=== PATIENT | female | born 1990 | race African-American/Black ===

== ENCOUNTER → 2016-11-21 | Outpatient (CLI) | payer MEDICARE, MEDICAID ==
[~2016-11-21] MED LIST: ALBU8.5H IH; AZEL137S8 NASAL; BECL8.7A6 IH; CARI350 PO; FLUT16H NASAL; HYDR-305 PO; IPRA6S NASAL; MIRAUD PO; MIRT15 PO; OLAN15TA5 PO; PROM5SYR2 PO; SUMA100T PO; VENL-67 PO
== END | disposition home or self-care (01) ==
LOC: RESP 09:57
PROVIDERS: ATTEND Internal Medicine Critical Care Medicine
DX: J44.9 Chronic obstructive pulmonary disease, unspecified (principal)
CPT/HCPCS: 94010; 94726; 94727; 94729

== ENCOUNTER 2016-11-23 05:07 | Emergency (ER) | payer MEDICARE, MEDICAID ==
[~2016-11-23] VITALS: Ht 154.9 cm; Wt 97.0 kg
[2016-11-23] MEDS ORDERED: ACETAMINOPHEN 500 MG TABLET PO ONE (06:30)
[2016-11-23] MEDS ORDERED: PENICILLIN G BENZATHINE LA 1,200,000 UNITS/2 ML SYRINGE IM ONE (06:30)
[2016-11-23] MEDS ORDERED: DEXAMETHASONE SOD PHOS 4 MG/ML 5 ML VIAL IM ONE (06:30)
[2016-11-23] MEDS ORDERED: HYDROCODONE/ACETAMINOPHEN 5-325 MG TABLET PO ONE (06:30)
[2016-11-23 06:58] VITALS: BP 118/69
== END 2016-11-23 07:15 | disposition home or self-care (01) ==
LOC: EMS 05:08
DX: J03.90 Acute tonsillitis, unspecified (principal); F17.210 Nicotine dependence, cigarettes, uncomplicated; F20.9 Schizophrenia, unspecified; J44.9 Chronic obstructive pulmonary disease, unspecified; Z79.899 Other long term (current) drug therapy
CPT/HCPCS: 96372; 99284; 99406; J0561; J1100

== ENCOUNTER 2018-07-13 13:26 | Emergency (ER) | payer MEDICAID, MEDICARE ==
[~2018-07-13] VITALS: Ht 154.9 cm; Wt 85.0 kg
[~2018-07-13 13:26] MED LIST changes: -ALBU8.5H IH; +ALBU8.5H8 IH; -HYDR-305 PO; +HYDR-4455 PO
[2018-07-13] MEDS ORDERED: ONDANSETRON HCL 4 MG/2 ML VIAL IM ONE (15:15)
[2018-07-13] MEDS ORDERED: TraMADol HCL 50 MG TABLET PO ONE (15:15)
[2018-07-13] MEDS ORDERED: MAALOX/LIDOCAINE/NYSTATIN SUSP 5 ML ORAL.SYG PO ONE (15:45)
[2018-07-13 17:16] VITALS: BP 128/77
== END 2018-07-13 17:20 | disposition home or self-care (01) ==
LOC: EMS 13:27
DX: S80.11XA Contusion of right lower leg, initial encounter (principal); K12.0 Recurrent oral aphthae; B34.9 Viral infection, unspecified; G89.29 Other chronic pain; F17.210 Nicotine dependence, cigarettes, uncomplicated; F20.9 Schizophrenia, unspecified; Z88.6 Allergy status to analgesic agent; W05.1XXA Fall from non-moving nonmotorized scooter, initial encounter; Y93.89 Activity, other specified; Y92.89 Other specified places as the place of occurrence of the external cause; Y99.8 Other external cause status
CPT/HCPCS: 96372; 99283; J2405

== ENCOUNTER 2018-09-29 23:31 | Emergency (ER) | payer MEDICAID ==
[~2018-09-29] VITALS: Ht 157.5 cm; Wt 77.3 kg
[2018-09-29 23:49] LABS: GLUCOSE,POINT OF CARE 96 MG/DL (70-110)
[2018-09-30] MEDS ORDERED: PENICILLIN G BENZATHINE LA 1,200,000 UNITS/2 ML SYRINGE IM ONE (00:30)
[2018-09-30] MEDS ORDERED: LORazepam 2 MG TABLET PO ONE (00:30)
[2018-09-30] MEDS ORDERED: ACETAMINOPHEN 500 MG TABLET PO ONE (00:30)
[2018-09-30 00:55] VITALS: BP 156/87
== END 2018-09-30 00:57 | disposition home or self-care (01) ==
LOC: EMS 23:31
DX: J02.9 Acute pharyngitis, unspecified (principal); F20.9 Schizophrenia, unspecified; E11.9 Type 2 diabetes mellitus without complications; J44.9 Chronic obstructive pulmonary disease, unspecified; F17.210 Nicotine dependence, cigarettes, uncomplicated; Z88.6 Allergy status to analgesic agent
CPT/HCPCS: 82962; 96372; 99283; J0561

== ENCOUNTER 2020-01-29 18:58 | Inpatient (IN) | payer MEDICARE, MEDICAID ==
[~2020-01-29] VITALS: Ht 157.5 cm; Wt 59.1 kg
[2020-01-29] MEDS ORDERED: VANCOMYCIN HCL 1 GM/D5% WATER 200 ML IV ONE (20:15)
[2020-01-29] MEDS ORDERED: 0.9% SODIUM CHLORIDE 10 ML SYRINGE IVP PRN ×2 (20:15→21:15)
[2020-01-29] MEDS ORDERED: SODIUM CHLORIDE 0.9% 1,000 ML IV ONE (20:15)
[2020-01-29] MEDS ORDERED: ACETAMINOPHEN 500 MG TABLET PO ONE (20:15)
[2020-01-29] MEDS ORDERED: HALOPERIDOL LACTATE 5 MG/ML VIAL IM ONE (20:30)
[2020-01-29] MEDS ORDERED: DiphenhydrAMINE HCL 50 MG/ML VIAL IM ONE (20:30)
[2020-01-29] MEDS ORDERED: LORazepam 2 MG/ML VIAL IM ONE (20:30)
[2020-01-29] MEDS ORDERED: ACETAMINOPHEN 1000 MG/ISO-OSM 100 ML IV ONE (20:45)
[2020-01-29] MEDS ORDERED: ONDANSETRON HCL 4 MG/2 ML VIAL IVP PRN ×2 (21:15→22:45)
[2020-01-29] MEDS ORDERED: ACETAMINOPHEN 325 MG TABLET PO PRN ×2 (21:15→22:45)
[2020-01-29 22:15] LABS: BASOPHILS % (AUTO) 0.6 % (0.0-2.0); EOSINOPHILS % (AUTO) 0.1 % (1.0-6.0); HEMATOCRIT 33.3 % (36-46); HEMOGLOBIN 10.5 g/dL (12.0-16.0); LYMPHOCYTES # (AUTO) 2.1 K/uL (1.0-4.8); LYMPHOCYTES % (AUTO) 20.5 % (22.0-44.0); MEAN CORPUSCULAR HGB CONC 31.6 G/dL (31.0-37.0); MEAN CORPUSCULAR VOLUME 79 fL (80-100); MONOCYTES % (AUTO) 9.4 % (2.0-9.0); NEUTROPHILS # (AUTO) 7.2 K/uL (1.8-7.7); NEUTROPHILS % (AUTO) 69.4 % (40.0-70.0); PLATELET COUNT (AUTO) 593 K/uL (150-450); RED BLOOD CELL COUNT(AUTO) 4.21 MIL/uL (4.00-5.20); RED CELL DISTRIBUTION WIDTH 15.5 % (11.5-14.5)
[2020-01-29 22:41] LABS: ALANINE AMINOTRANSFERASE 15 U/L (12-78); ALBUMIN 3.7 g/dL (3.4-5.0); ALKALINE PHOSPHATASE 87 U/L (46-116); ANION GAP 11 mmol/L (8-16); ASPARTATE AMINOTRANSFERASE 12 U/L (15-37); BILIRUBIN,TOTAL 0.4 mg/dL (0.1-1.0); CALCIUM, TOTAL 9.2 mg/dL (8.8-10.5); CARBON DIOXIDE 25 mmol/L (22-29); CHLORIDE 105 mmol/L (98-107); CREATININE 0.83 mg/dL (0.60-1.30); GLOMERULAR FILTR. RATE CALC > 60 mL/min (>60); GLUCOSE,RANDOM 112 mg/dL (70-110); HCG,QUANTITATIVE 1 mIU/mL (0-6); SODIUM SERUM 141 mmol/L (136-145); TOTAL PROTEIN, SERUM 9.1 g/dL (6.4-8.2); UREA NITROGEN, BLOOD 6 mg/dL (7-18)
[2020-01-29] MEDS ORDERED: BISACODYL 10 MG RECTAL RECTAL SUPPOSITORY PR PRN (22:45)
[2020-01-29] MEDS ORDERED: ZOLPIDEM TARTRATE 5 MG TABLET PO PRN (22:45)
[2020-01-29] MEDS ORDERED: MAGNESIUM HYDROXIDE SUSPENSION 30 ML UDCUP PO PRN (22:45)
[2020-01-29] MEDS ORDERED: IPRATROPIUM BROMIDE 0.5 MG/2.5 ML NEB SOLUTION NEB PRN (22:45)
[2020-01-29] MEDS ORDERED: DEXTROSE 50%-WATER 25 GM/50 ML SYRINGE IVP PRN (22:45)
[2020-01-29] MEDS ORDERED: ALBUTEROL SULFATE 2.5 MG/0.5 ML NEB SOLUTION NEB PRN (22:45)
[2020-01-29 22:48] LABS: POTASSIUM 2.7 mmol/L (3.5-5.1)
[2020-01-29 22:50] LABS: GLUCOSE,POINT OF CARE 106 MG/DL (70-110)
[2020-01-29] MEDS ORDERED: POTASSIUM CHL 10 MEQ/WATER 50 ML IV PRN (23:00)
[2020-01-29] MEDS ORDERED: POTASSIUM CHLORIDE 20 MEQ ER TABLET PO PRN (23:15)
[2020-01-29] MEDS ORDERED: MAGNESIUM OXIDE 400 MG TABLET PO PRN (23:15)
[2020-01-29] MEDS ORDERED: MAGNESIUM SULFATE 4 GM/WATER 100 ML IV PRN (23:15)
[2020-01-29] MEDS ORDERED: MAGNESIUM SULFATE 2 GM/WATER 50 ML IV PRN (23:15)
[2020-01-30] VITALS (7 sets, daily range): BP systolic 112–158; BP diastolic 54–91
[2020-01-30] MEDS: POTASSIUM CHL 10 MEQ/WATER 50 ML IV PRN ×4 (01:36→06:55)
[2020-01-30] MEDS ORDERED: SODIUM CHLORIDE 0.9% 500 ML IV ONE (03:03)
[2020-01-30] MEDS ORDERED: SODIUM CHLORIDE 0.9% 100 ML ONE (03:54)
[2020-01-30 06:47] LABS: GLUCOMETER DEV NAME(LOC) 6S.1; GLUCOSE,POINT OF CARE 109 MG/DL (70-110)
[2020-01-30 07:16] LABS: BASOPHILS % (AUTO) 0.7 % (0.0-2.0); EOSINOPHILS % (AUTO) 0.8 % (1.0-6.0); HEMATOCRIT 30.2 % (36-46); HEMOGLOBIN 9.8 g/dL (12.0-16.0); LYMPHOCYTES % (AUTO) 27.3 % (22.0-44.0); MEAN CORPUSCULAR HEMOGLOBIN 25.7 pg (26.0-34.0); MEAN CORPUSCULAR HGB CONC 32.5 G/dL (31.0-37.0); MEAN CORPUSCULAR VOLUME 79 fL (80-100); MONOCYTES # (AUTO) 1.1 K/uL (0.1-1.0); MONOCYTES % (AUTO) 9.6 % (2.0-9.0); NEUTROPHILS # (AUTO) 6.8 K/uL (1.8-7.7); NEUTROPHILS % (AUTO) 61.6 % (40.0-70.0); PLATELET COUNT (AUTO) 523 K/uL (150-450); RED BLOOD CELL COUNT(AUTO) 3.82 MIL/uL (4.00-5.20); RED CELL DISTRIBUTION WIDTH 15.5 % (11.5-14.5)
[2020-01-30 07:46] LABS: ANION GAP 13 mmol/L (8-16); CARBON DIOXIDE 22 mmol/L (22-29); CHLORIDE 108 mmol/L (98-107); CREATININE 0.67 mg/dL (0.60-1.30); GLUCOSE,RANDOM 107 mg/dL (70-110); POTASSIUM 3.4 mmol/L (3.5-5.1); SODIUM SERUM 143 mmol/L (136-145); UREA NITROGEN, BLOOD 5 mg/dL (7-18)
[2020-01-30 07:47] LABS: ALANINE AMINOTRANSFERASE 16 U/L (12-78); ALBUMIN 3.3 g/dL (3.4-5.0); ALKALINE PHOSPHATASE 76 U/L (46-116); ASPARTATE AMINOTRANSFERASE 21 U/L (15-37); BILIRUBIN,TOTAL 0.3 mg/dL (0.1-1.0); CALCIUM, TOTAL 8.4 mg/dL (8.8-10.5); GLOMERULAR FILTR. RATE CALC > 60 mL/min (>60); TOTAL PROTEIN, SERUM 8.2 g/dL (6.4-8.2)
[2020-01-30] MEDS ORDERED: ERYTHROMYCIN 0.5% 3.5 GM TUBE OPHTHALMIC OINTMENT OD ONE (08:15)
[2020-01-30] MEDS ORDERED: MUPIROCIN CALCIUM 2% 22 GM OINTMENT TP ONE (08:15)
[2020-01-30] MEDS: HEPARIN SODIUM,PORCINE 5,000 UNITS/ML VIAL SQ SCH ×3 (09:12→09:22)
[2020-01-30] MEDS: DOCUSATE SODIUM 100 MG CAPSULE PO SCH (09:12)
[2020-01-30] MEDS: INSULIN LISPRO 100 UNITS/ML SQ PRN ×2 (12:06→17:19)
[2020-01-30] MEDS ORDERED: ACETAMINOPHEN 325 MG TABLET PO PRN (13:45)
[2020-01-30 17:23] LABS: GLUCOMETER DEV NAME(LOC) 6N.2; GLUCOSE,POINT OF CARE 106 MG/DL (70-110)
[2020-01-30 19:40] LABS: GLUCOMETER DEV NAME(LOC) 6N.2; GLUCOSE,POINT OF CARE 92 MG/DL (70-110)
[2020-01-30 23:31] LABS: GLUCOMETER DEV NAME(LOC) 6S.1; GLUCOSE,POINT OF CARE 107 MG/DL (70-110)
[2020-01-31] MEDS: DOCUSATE SODIUM 100 MG CAPSULE PO SCH ×2 (00:58→08:23)
[2020-01-31] MEDS: HEPARIN SODIUM,PORCINE 5,000 UNITS/ML VIAL SQ SCH ×3 (00:58→15:28)
[2020-01-31 03:57] VITALS: BP 122/78
[2020-01-31 07:10] LABS: BASOPHILS % (AUTO) 0.6 % (0.0-2.0); EOSINOPHILS % (AUTO) 5.6 % (1.0-6.0); HEMATOCRIT 31.1 % (36-46); HEMOGLOBIN 10.2 g/dL (12.0-16.0); LYMPHOCYTES # (AUTO) 2.5 K/uL (1.0-4.8); LYMPHOCYTES % (AUTO) 35.5 % (22.0-44.0); MEAN CORPUSCULAR HEMOGLOBIN 25.8 pg (26.0-34.0); MEAN CORPUSCULAR HGB CONC 32.8 G/dL (31.0-37.0); MEAN CORPUSCULAR VOLUME 79 fL (80-100); MONOCYTES # (AUTO) 0.7 K/uL (0.1-1.0); MONOCYTES % (AUTO) 9.4 % (2.0-9.0); NEUTROPHILS # (AUTO) 3.4 K/uL (1.8-7.7); NEUTROPHILS % (AUTO) 48.9 % (40.0-70.0); PLATELET COUNT (AUTO) 529 K/uL (150-450); RED BLOOD CELL COUNT(AUTO) 3.95 MIL/uL (4.00-5.20); RED CELL DISTRIBUTION WIDTH 15.2 % (11.5-14.5)
[2020-01-31 07:19] LABS: ALANINE AMINOTRANSFERASE 12 U/L (12-78); ALBUMIN 3.1 g/dL (3.4-5.0); ALKALINE PHOSPHATASE 65 U/L (46-116); ANION GAP 11 mmol/L (8-16); ASPARTATE AMINOTRANSFERASE 12 U/L (15-37); BILIRUBIN,TOTAL 0.2 mg/dL (0.1-1.0); CALCIUM, TOTAL 8.7 mg/dL (8.8-10.5); CARBON DIOXIDE 25 mmol/L (22-29); CHLORIDE 105 mmol/L (98-107); CREATININE 0.52 mg/dL (0.60-1.30); GLOMERULAR FILTR. RATE CALC > 60 mL/min (>60); GLUCOSE,RANDOM 101 mg/dL (70-110); POTASSIUM 3.8 mmol/L (3.5-5.1); SODIUM SERUM 141 mmol/L (136-145); TOTAL PROTEIN, SERUM 8.1 g/dL (6.4-8.2); UREA NITROGEN, BLOOD 7 mg/dL (7-18)
[2020-01-31 07:54] VITALS: BP 127/62
[2020-01-31] MEDS: INSULIN LISPRO 100 UNITS/ML SQ PRN (11:26)
[2020-01-31 11:28] VITALS: BP 108/67
[2020-01-31 11:47] LABS: GLUCOMETER DEV NAME(LOC) 6N.2; GLUCOSE,POINT OF CARE 106 MG/DL (70-110)
[2020-01-31 11:48] LABS: GLUCOMETER DEV NAME(LOC) 6N.2; GLUCOSE,POINT OF CARE 117 MG/DL (70-110)
[2020-01-31 16:23] VITALS: BP 106/66
[2020-01-31 17:59] LABS: GLUCOMETER DEV NAME(LOC) 6S.1; GLUCOSE,POINT OF CARE 103 MG/DL (70-110)
== END 2020-01-31 17:35 | DRG 605 ==
LOC: EMS 18:58 → 5S 22:35 → 6N 01-30 02:36 → 6S 01-30 13:57
PROVIDERS: ADMIT Hospitalist; ATTEND Hospitalist
DX: S80.812A Abrasion, left lower leg, initial encounter (principal); L03.116 Cellulitis of left lower limb; L03.115 Cellulitis of right lower limb; F99 Mental disorder, not otherwise specified; E87.6 Hypokalemia; E11.9 Type 2 diabetes mellitus without complications; J44.9 Chronic obstructive pulmonary disease, unspecified; F20.9 Schizophrenia, unspecified; F17.210 Nicotine dependence, cigarettes, uncomplicated; Z88.6 Allergy status to analgesic agent; S80.811A Abrasion, right lower leg, initial encounter; X58.XXXA Exposure to other specified factors, initial encounter; M54.5 Low back pain; F15.159 Other stimulant abuse with stimulant-induced psychotic disorder, unspecified; Z20.828 Contact with and (suspected) exposure to other viral communicable diseases
CPT/HCPCS: 83605; 83735; 84132; 84145; 87040; 93005; 99291; G0378; G0480; J1200; J1630; J1644; J2060; J3370; J3480; J7030; J7040; J7050

== ENCOUNTER 2020-01-31 17:45 | Inpatient (IN) | payer MEDICARE, MEDICAID ==
[~2020-01-31] VITALS: Ht 157.5 cm; Wt 62.8 kg
[2020-01-31 20:23] VITALS: BP 111/67
[2020-01-31] MEDS ORDERED: ZOLPIDEM TARTRATE 10 MG TABLET PO PRN (21:00)
[2020-01-31] MEDS ORDERED: DEXTROSE 50%-WATER 25 GM/50 ML SYRINGE IVP PRN (21:00)
[2020-01-31] MEDS ORDERED: INSULIN LISPRO 100 UNITS/ML SQ PRN (21:00)
[2020-01-31] MEDS ORDERED: PNEUMOCOCCAL VACCINE POLYVALENT 0.5 ML VIAL [PPSV23] IM ONE (21:00)
[2020-01-31 21:39] LABS: GLUCOMETER DEV NAME(LOC) 3E.I 2; GLUCOSE,POINT OF CARE 105 MG/DL (70-110)
[2020-01-31] MEDS: LORazepam 2 MG TABLET PO PRN (23:58)
[2020-02-01] VITALS (9 sets, daily range): BP systolic 103–129; BP diastolic 69–82
[2020-02-01 06:08] LABS: GLUCOMETER DEV NAME(LOC) 3E.I 2; GLUCOSE,POINT OF CARE 95 MG/DL (70-110)
[2020-02-01] MEDS ORDERED: DOCUSATE SODIUM 100 MG CAPSULE PO PRN (07:15)
[2020-02-01] MEDS ORDERED: ONDANSETRON HCL 4 MG TABLET PO PRN (07:15)
[2020-02-01] MEDS ORDERED: OMEPRAZOLE 20 MG CAPSULE PO PRN (07:15)
[2020-02-01] MEDS ORDERED: MAG HYDROX/AL HYDROX/SIMETH ES 30 ML SUSPENSION UDCUP PO PRN (07:15)
[2020-02-01] MEDS ORDERED: BENZOCAINE/MENTHOL LOZENGE MM PRN (07:15)
[2020-02-01] MEDS ORDERED: CloNIDine HCL 0.1 MG TABLET PO PRN ×2 (07:15→14:00)
[2020-02-01] MEDS ORDERED: LOPERAMIDE HCL 2 MG CAPSULE PO PRN (07:15)
[2020-02-01] MEDS ORDERED: BACITRACIN 28.4 GM OINTMENT TP PRN (07:15)
[2020-02-01] MEDS ORDERED: PETROLATUM,WHITE 28 GM JELLY TP PRN (07:15)
[2020-02-01] MEDS ORDERED: ACETAMINOPHEN 325 MG TABLET PO PRN (07:15)
[2020-02-01] MEDS ORDERED: ALBUTEROL SULFATE HFA 90 MCG/PUFF 8 GM INHALER IH PRN (07:15)
[2020-02-01] MEDS ORDERED: MAGNESIUM HYDROXIDE SUSPENSION 30 ML UDCUP PO PRN (07:15)
[2020-02-01] MEDS: MUPIROCIN CALCIUM 2% 15 GM CREAM TP SCH ×2 (08:33→16:18)
[2020-02-01] MEDS: SULFAMETHOX/TRIMETH DS 800-160 MG/TABLET PO SCH ×2 (08:33→16:18)
[2020-02-01] MEDS: NICOTINE 21 MG/24 HOUR PATCH TD SCH (08:34)
[2020-02-01] MEDS: HALOPERIDOL 5 MG TABLET PO PRN (13:53)
[2020-02-01] MEDS: LORazepam 2 MG TABLET PO PRN (13:53)
[2020-02-01] MEDS ORDERED: HydrOXYzine PAMOATE 50 MG CAPSULE PO PRN (14:00)
[2020-02-01] MEDS: IBUPROFEN 600 MG TABLET PO PRN (14:06)
[2020-02-01] MEDS: CloNIDine HCL 0.1 MG TABLET PO SCH ×2 (16:18→22:07)
[2020-02-01] MEDS: RisperiDONE 2 MG TABLET PO SCH (17:23)
[2020-02-01 18:01] LABS: GLUCOMETER DEV NAME(LOC) 3E.I 2; GLUCOSE,POINT OF CARE 87 MG/DL (70-110)
[2020-02-01 21:39] LABS: GLUCOMETER DEV NAME(LOC) 3E.I 2; GLUCOSE,POINT OF CARE 103 MG/DL (70-110)
[2020-02-02 01:00] VITALS: BP 112/76
[2020-02-02 01:11] VITALS: BP 112/76
[2020-02-02 05:43] VITALS: BP 103/64
[2020-02-02] MEDS: CloNIDine HCL 0.1 MG TABLET PO SCH ×4 (05:46→22:00)
[2020-02-02 05:56] LABS: GLUCOMETER DEV NAME(LOC) 3E.I 2; GLUCOSE,POINT OF CARE 97 MG/DL (70-110)
[2020-02-02] MEDS: SULFAMETHOX/TRIMETH DS 800-160 MG/TABLET PO SCH ×2 (09:52→16:43)
[2020-02-02] MEDS: RisperiDONE 2 MG TABLET PO SCH ×2 (09:52→16:43)
[2020-02-02] MEDS: NICOTINE 21 MG/24 HOUR PATCH TD SCH (09:53)
[2020-02-02] MEDS: MUPIROCIN CALCIUM 2% 15 GM CREAM TP SCH ×2 (09:53→16:43)
[2020-02-02] MEDS: LORazepam 2 MG TABLET PO PRN (10:51)
[2020-02-02] MEDS: HALOPERIDOL 5 MG TABLET PO PRN (10:51)
[2020-02-02 10:54] LABS: GLUCOMETER DEV NAME(LOC) 3EX.; GLUCOSE,POINT OF CARE 113 MG/DL (70-110)
[2020-02-02 13:30] VITALS: BP 111/66
[2020-02-02 14:11] LABS: GLUCOMETER DEV NAME(LOC) 3EX.; GLUCOSE,POINT OF CARE 87 MG/DL (70-110)
[2020-02-02 16:00] VITALS: BP 109/64
[2020-02-02 16:38] LABS: GLUCOMETER DEV NAME(LOC) 3EX.; GLUCOSE,POINT OF CARE 98 MG/DL (70-110)
[2020-02-02 17:00] VITALS: BP 112/72
[2020-02-02 21:22] LABS: GLUCOMETER DEV NAME(LOC) 3EX.; GLUCOSE,POINT OF CARE 102 MG/DL (70-110)
[2020-02-03 05:41] LABS: GLUCOMETER DEV NAME(LOC) 3E.I 2; GLUCOSE,POINT OF CARE 88 MG/DL (70-110)
[2020-02-03] MEDS: CloNIDine HCL 0.1 MG TABLET PO SCH ×4 (06:00→22:00)
[2020-02-03 08:00] VITALS: BP 104/59
[2020-02-03] MEDS: SULFAMETHOX/TRIMETH DS 800-160 MG/TABLET PO SCH ×2 (08:18→16:07)
[2020-02-03] MEDS: NICOTINE 21 MG/24 HOUR PATCH TD SCH (08:18)
[2020-02-03] MEDS: RisperiDONE 2 MG TABLET PO SCH ×2 (08:18→16:08)
[2020-02-03] MEDS: MUPIROCIN CALCIUM 2% 15 GM CREAM TP SCH ×2 (08:26→16:07)
[2020-02-03 11:52] LABS: GLUCOMETER DEV NAME(LOC) 3EX.; GLUCOSE,POINT OF CARE 86 MG/DL (70-110)
[2020-02-03 12:06] LABS: GLUCOMETER DEV NAME(LOC) 3E.I 2; GLUCOSE,POINT OF CARE 113 MG/DL (70-110)
[2020-02-03] MEDS: IBUPROFEN 600 MG TABLET PO PRN (12:31)
[2020-02-03 16:00] VITALS: BP 108/51
[2020-02-03 17:23] LABS: GLUCOMETER DEV NAME(LOC) 3EX.; GLUCOSE,POINT OF CARE 90 MG/DL (70-110)
[2020-02-03 21:18] LABS: GLUCOMETER DEV NAME(LOC) 3EX.; GLUCOSE,POINT OF CARE 107 MG/DL (70-110)
[2020-02-04 05:24] LABS: GLUCOMETER DEV NAME(LOC) 3E.I 2; GLUCOSE,POINT OF CARE 102 MG/DL (70-110)
[2020-02-04 06:15] VITALS: BP 114/78
[2020-02-04] MEDS: CloNIDine HCL 0.1 MG TABLET PO SCH ×2 (06:15→12:00)
[2020-02-04 08:00] VITALS: BP 104/65
[2020-02-04] MEDS: SULFAMETHOX/TRIMETH DS 800-160 MG/TABLET PO SCH (08:07)
[2020-02-04] MEDS: NICOTINE 21 MG/24 HOUR PATCH TD SCH (08:07)
[2020-02-04] MEDS: RisperiDONE 2 MG TABLET PO SCH (08:07)
[2020-02-04] MEDS: MUPIROCIN CALCIUM 2% 15 GM CREAM TP SCH (08:07)
[2020-02-04 10:22] LABS: GLUCOMETER DEV NAME(LOC) 3EX.; GLUCOSE,POINT OF CARE 109 MG/DL (70-110)
[2020-02-04 11:42] LABS: GLUCOMETER DEV NAME(LOC) 3EX.; GLUCOSE,POINT OF CARE 126 MG/DL (70-110)
[2020-02-04] MEDS ORDERED: RISP2TAB23 PO (14:05)
[2020-02-04] MEDS ORDERED: SULF1TAB42 PO (14:05)
== END 2020-02-04 16:15 | disposition home or self-care (01) | DRG 885 ==
LOC: 3EX 17:45
PROVIDERS: ADMIT Psychiatry & Neurology Psychiatry; ATTEND Psychiatry & Neurology Psychiatry
DX: F20.0 Paranoid schizophrenia (principal); E11.9 Type 2 diabetes mellitus without complications; J44.9 Chronic obstructive pulmonary disease, unspecified; Z20.828 Contact with and (suspected) exposure to other viral communicable diseases; F41.9 Anxiety disorder, unspecified; K59.00 Constipation, unspecified; G47.00 Insomnia, unspecified; Z79.899 Other long term (current) drug therapy
CPT/HCPCS: 87081; G0378

== ENCOUNTER 2023-03-02 10:17 | Emergency (ER) | payer MEDICAID, MEDICARE ==
[~2023-03-02] VITALS: Ht 154.9 cm; Wt 102.0 kg
[~2023-03-02 10:17] MED LIST changes: -ALBU8.5H8 IH; -AZEL137S8 NASAL; -BECL8.7A6 IH; -CARI350 PO; -FLUT16H NASAL; -HYDR-4455 PO; -IPRA6S NASAL; -MIRAUD PO; -MIRT15 PO; -OLAN15TA5 PO; -PROM5SYR2 PO; +RISP2TAB45 PO; +SULF1TAB42 PO; -SUMA100T PO; -VENL-67 PO
[2023-03-02 10:29] VITALS: TEMP 98.3
[2023-03-02] MEDS ORDERED: DiphenhydrAMINE HCL 50 MG/ML VIAL IVP ONE (11:45)
[2023-03-02] MEDS ORDERED: ACETAMINOPHEN 500 MG TABLET PO ONE (11:45)
[2023-03-02] MEDS ORDERED: ONDANSETRON HCL 4 MG/2 ML VIAL IVP ONE (11:45)
[2023-03-02] MEDS ORDERED: METOCLOPRAMIDE HCL 5 MG/ML 2 ML VIAL IVP ONE (11:45)
[2023-03-02 12:15] LABS: BASOPHILS % (AUTO) 0.5 % (0.0-2.0); EOSINOPHILS % (AUTO) 2.2 % (1.0-6.0); HEMATOCRIT 34.8 % (36-46); LYMPHOCYTES # (AUTO) 5.3 K/uL (1.0-4.8); LYMPHOCYTES % (AUTO) 52.3 % (22.0-44.0); MEAN CORPUSCULAR HEMOGLOBIN 25.4 pg (26.0-34.0); MEAN CORPUSCULAR HGB CONC 31.6 G/dL (31.0-37.0); MEAN CORPUSCULAR VOLUME 80 fL (80-100); MONOCYTES # (AUTO) 0.6 K/uL (0.1-1.0); MONOCYTES % (AUTO) 5.7 % (2.0-9.0); NEUTROPHILS % (AUTO) 39.3 % (40.0-70.0); PLATELET COUNT (AUTO) 392 K/uL (150-450); RED BLOOD CELL COUNT(AUTO) 4.34 MIL/uL (4.00-5.20); RED CELL DISTRIBUTION WIDTH 15.3 % (11.5-14.5)
[2023-03-02 12:23] LABS: ANION GAP 11 mmol/L (8-16); CALCIUM, TOTAL 9.5 mg/dL (8.8-10.5); CARBON DIOXIDE 29 mmol/L (22-29); CHLORIDE 103 mmol/L (98-107); CREATININE 0.69 mg/dL (0.60-1.30); GLOMERULAR FILTR. RATE CALC > 60 mL/min (>60); GLUCOSE,RANDOM 101 mg/dL (70-110); POTASSIUM 3.5 mmol/L (3.5-5.1); SODIUM SERUM 143 mmol/L (136-145)
[2023-03-02] MEDS ORDERED: KETOROLAC TROMETHAMINE 30 MG/ML VIAL IVP ONE (13:00)
[2023-03-02 13:14] VITALS: BP 118/80; PULSE 80; RESP 14
== END 2023-03-02 13:29 | disposition home or self-care (01) ==
LOC: EMS 10:34
DX: G43.909 Migraine, unspecified, not intractable, without status migrainosus (principal); E11.9 Type 2 diabetes mellitus without complications; F20.9 Schizophrenia, unspecified; J44.9 Chronic obstructive pulmonary disease, unspecified; G89.29 Other chronic pain; F17.210 Nicotine dependence, cigarettes, uncomplicated; Z88.8 Allergy status to other drugs, medicaments and biological substances
CPT/HCPCS: 99285; 96374; 96375; 70450; 80048; 84703; 85025; 36415; J1200; J1885; J2765; J2405

== ENCOUNTER 2023-03-05 14:39 | Emergency (ER) | payer MEDICAID ==
[~2023-03-05] VITALS: Ht 157.5 cm; Wt 118.2 kg
[2023-03-05 14:51] VITALS: TEMP 98.6
[2023-03-05 15:07] VITALS: BP 117/79; PULSE 89; RESP 18
[2023-03-05] MEDS ORDERED: ACETAMINOPHEN 500 MG TABLET PO ONE (15:15)
[2023-03-05] MEDS ORDERED: KETOROLAC TROMETHAMINE 30 MG/ML VIAL IM ONE (15:15)
[2023-03-05] MEDS ORDERED: DiphenhydrAMINE HCL 25 MG CAPSULE PO ONE (15:15)
== END 2023-03-05 16:03 | disposition home or self-care (01) ==
LOC: EMS 14:39
DX: R51.9 Headache, unspecified (principal); G89.29 Other chronic pain; E11.9 Type 2 diabetes mellitus without complications; F20.9 Schizophrenia, unspecified; J44.9 Chronic obstructive pulmonary disease, unspecified; F17.210 Nicotine dependence, cigarettes, uncomplicated
CPT/HCPCS: 99283; 96372; J1885

== ENCOUNTER 2023-03-16 17:24 | Emergency (ER) | payer MEDICAID ==
[~2023-03-16] VITALS: Ht 154.9 cm; Wt 100.0 kg
[~2023-03-16 17:24] MED LIST changes: -SULF1TAB42 PO
[2023-03-16 17:29] VITALS: TEMP 98.4
[2023-03-16] MEDS ORDERED: SODIUM CHLORIDE 0.9% 1,000 ML IV ONE (19:15)
[2023-03-16] MEDS ORDERED: ACETAMINOPHEN 500 MG TABLET PO ONE (19:15)
[2023-03-16] MEDS ORDERED: METOCLOPRAMIDE HCL 5 MG/ML 2 ML VIAL IVP ONE (19:15)
[2023-03-16] MEDS ORDERED: DiphenhydrAMINE HCL 50 MG/ML VIAL IVP ONE (19:15)
[2023-03-16] MEDS ORDERED: KETOROLAC TROMETHAMINE 30 MG/ML VIAL IVP ONE (19:15)
[2023-03-16 22:20] VITALS: BP 120/85; PULSE 93; RESP 18
== END 2023-03-16 22:46 | disposition home or self-care (01) ==
LOC: EMS 17:25
DX: R51.9 Headache, unspecified (principal); J44.9 Chronic obstructive pulmonary disease, unspecified; E11.9 Type 2 diabetes mellitus without complications; F20.9 Schizophrenia, unspecified; G89.29 Other chronic pain; M54.9 Dorsalgia, unspecified; F17.210 Nicotine dependence, cigarettes, uncomplicated; Z98.890 Other specified postprocedural states
CPT/HCPCS: 99284; 96374; 96375; 96361; J1200; J1885; J2765; J7030

== ENCOUNTER 2023-03-19 22:38 | Inpatient (IN) | payer MEDICARE, MEDICAID ==
[~2023-03-19] VITALS: Ht 154.9 cm; Wt 99.8 kg
[2023-03-19] MEDS ORDERED: DiphenhydrAMINE HCL 50 MG/ML VIAL IVP ONE (23:30)
[2023-03-19] MEDS ORDERED: KETOROLAC TROMETHAMINE 30 MG/ML VIAL IVP ONE (23:30)
[2023-03-19 23:59] LABS: BASOPHILS % (AUTO) 0.5 % (0.0-2.0); HEMATOCRIT 35.3 % (36-46); HEMOGLOBIN 11.1 g/dL (12.0-16.0); LYMPHOCYTES # (AUTO) 5.3 K/uL (1.0-4.8); LYMPHOCYTES % (AUTO) 49.1 % (22.0-44.0); MEAN CORPUSCULAR HEMOGLOBIN 25.2 pg (26.0-34.0); MEAN CORPUSCULAR HGB CONC 31.5 G/dL (31.0-37.0); MEAN CORPUSCULAR VOLUME 80 fL (80-100); MONOCYTES # (AUTO) 0.7 K/uL (0.1-1.0); MONOCYTES % (AUTO) 6.5 % (2.0-9.0); NEUTROPHILS # (AUTO) 4.6 K/uL (1.8-7.7); NEUTROPHILS % (AUTO) 42.9 % (40.0-70.0); PLATELET COUNT (AUTO) 381 K/uL (150-450); RED BLOOD CELL COUNT(AUTO) 4.39 MIL/uL (4.00-5.20)
[2023-03-20 00:08] LABS: ANION GAP 10 mmol/L (8-16); CALCIUM, TOTAL 9.3 mg/dL (8.8-10.5); CARBON DIOXIDE 24 mmol/L (22-29); CHLORIDE 103 mmol/L (98-107); CREATININE 0.72 mg/dL (0.60-1.30); GLOMERULAR FILTR. RATE CALC > 60 mL/min (>60); GLUCOSE,RANDOM 103 mg/dL (70-110); POTASSIUM 3.3 mmol/L (3.5-5.1); SODIUM SERUM 137 mmol/L (136-145)
[2023-03-20 00:14] LABS: ALANINE AMINOTRANSFERASE 20 U/L (12-78); ALBUMIN 3.6 g/dL (3.4-5.0); ALKALINE PHOSPHATASE 88 U/L (46-116); ASPARTATE AMINOTRANSFERASE 16 U/L (15-37); BILIRUBIN,TOTAL 0.2 mg/dL (0.1-1.0); TOTAL PROTEIN, SERUM 7.7 g/dL (6.4-8.2)
[2023-03-20] MEDS ORDERED: RisperiDONE 1 MG TABLET PO ONE (00:30)
[2023-03-20] MEDS ORDERED: LORazepam 1 MG TABLET PO ONE (00:30)
[2023-03-20] MEDS ORDERED: POTASSIUM CHLORIDE 20 MEQ ER TABLET PO ONE (00:45)
[2023-03-20 01:01] LABS: COVID AG,FIA SOURCE NASAL SWAB
[2023-03-20] MEDS ORDERED: HALOPERIDOL 5 MG TABLET PO PRN (01:45)
[2023-03-20] MEDS: LORazepam 2 MG TABLET PO PRN (04:14)
[2023-03-20] MEDS: ZOLPIDEM TARTRATE 10 MG TABLET PO PRN (04:14)
[2023-03-20 08:31] LABS: GLUCOMETER DEV NAME(LOC) ER.6
[2023-03-20 10:50] VITALS: BP 129/82; PULSE 83; RESP 17; TEMP 98; O2SAT 98
[2023-03-20 11:41] LABS: GLUCOMETER DEV NAME(LOC) BV2X.2
[2023-03-20] MEDS ORDERED: PNEUMOCOCCAL VACCINE POLYVALENT 0.5 ML VIAL [PPSV23] IM. ONE (12:30)
[2023-03-20] MEDS ORDERED: ONDANSETRON HCL 4 MG TABLET PO PRN (13:00)
[2023-03-20] MEDS ORDERED: LOPERAMIDE HCL 2 MG CAPSULE PO PRN (13:00)
[2023-03-20] MEDS ORDERED: DOCUSATE SODIUM 100 MG CAPSULE PO PRN (13:00)
[2023-03-20] MEDS ORDERED: CloNIDine HCL 0.1 MG TABLET PO PRN (13:00)
[2023-03-20] MEDS ORDERED: PETROLATUM,WHITE 28 GM JELLY TP PRN (13:00)
[2023-03-20] MEDS ORDERED: MAGNESIUM HYDROXIDE SUSPENSION 30 ML UDCUP PO PRN (13:00)
[2023-03-20] MEDS ORDERED: ALBUTEROL SULFATE HFA 90 MCG/PUFF 8 GM INHALER IH PRN (13:00)
[2023-03-20] MEDS ORDERED: MAG HYDROX/AL HYDROX/SIMETH ES 30 ML SUSPENSION UDCUP PO PRN (13:00)
[2023-03-20] MEDS ORDERED: POTASSIUM CHLORIDE 10 MEQ ER TABLET PO ONE (13:00)
[2023-03-20] MEDS: IBUPROFEN 400 MG TABLET PO PRN (15:52)
[2023-03-20 16:10] VITALS: BP 122/84; PULSE 81; RESP 18
[2023-03-20 16:52] VITALS: RESP 18
[2023-03-20] MEDS: RisperiDONE 2 MG TABLET PO SCH (20:28)
[2023-03-20] MEDS: FLUTICASONE PROPIONATE 50 MCG/SPRAY 16 GM NASAL SPRAY NASAL PRN (21:32)
[2023-03-21] VITALS (10 sets, daily range): BP systolic 117–128; BP diastolic 83–84; PULSE 97–106; RESP 16–19; TEMP 97.3–97.8; O2SAT 97–98
[2023-03-21] MEDS: IBUPROFEN 400 MG TABLET PO PRN ×2 (05:04→14:19)
[2023-03-21] MEDS: ACETAMINOPHEN 325 MG TABLET PO PRN (08:02)
[2023-03-21] MEDS: RisperiDONE 2 MG TABLET PO SCH ×2 (08:02→20:39)
[2023-03-21] MEDS: NICOTINE 14 MG/24 HOUR PATCH TD PRN (08:02)
[2023-03-21] MEDS: FLUTICASONE PROPIONATE 50 MCG/SPRAY 16 GM NASAL SPRAY NASAL PRN (08:02)
[2023-03-21 09:20] LABS: CHOL/HDL RATIO 2.9 (3.9-5.7); THYROID STIMULATING HORMONE 1.13 uIU/mL (0.36-3.74)
[2023-03-21] MEDS ORDERED: SUMAtriptan SUCCINATE 25 MG TABLET PO PRN (10:45)
[2023-03-21] MEDS: BENZTROPINE MESYLATE 1 MG TABLET PO SCH ×2 (14:16→17:15)
[2023-03-21] MEDS: LORazepam 2 MG TABLET PO PRN (14:16)
[2023-03-21] MEDS: SUMAtriptan SUCCINATE 25 MG TABLET PO SCH (17:16)
[2023-03-22 00:17] VITALS: BP 122/77; PULSE 90; RESP 17; TEMP 97.8
[2023-03-22] MEDS: SUMAtriptan SUCCINATE 25 MG TABLET PO SCH ×4 (00:22→17:43)
[2023-03-22 01:49] VITALS: RESP 17
[2023-03-22] MEDS: IBUPROFEN 400 MG TABLET PO PRN ×2 (01:51→22:51)
[2023-03-22 06:16] VITALS: BP 115/74; PULSE 88; RESP 17; TEMP 97.9
[2023-03-22] MEDS: BENZTROPINE MESYLATE 1 MG TABLET PO SCH ×2 (08:23→16:30)
[2023-03-22] MEDS: RisperiDONE 2 MG TABLET PO SCH ×2 (08:23→20:33)
[2023-03-22] MEDS: LORazepam 2 MG TABLET PO PRN (08:30)
[2023-03-22 08:33] VITALS: BP 139/90; PULSE 99; RESP 18; TEMP 97.3; O2SAT 98
[2023-03-22 20:12] VITALS: BP 120/80; PULSE 100; RESP 19; TEMP 97.7; O2SAT 98
[2023-03-22 22:48] VITALS: BP 128/90; PULSE 81; RESP 18
[2023-03-23] MEDS: SUMAtriptan SUCCINATE 25 MG TABLET PO SCH ×3 (00:02→12:40)
[2023-03-23] MEDS: FLUTICASONE PROPIONATE 50 MCG/SPRAY 16 GM NASAL SPRAY NASAL PRN (07:28)
[2023-03-23] MEDS: RisperiDONE 2 MG TABLET PO SCH ×2 (08:15→21:33)
[2023-03-23] MEDS: BENZTROPINE MESYLATE 1 MG TABLET PO SCH ×2 (08:15→16:38)
[2023-03-23] MEDS: MULTIVITAMINS WITH MINERALS, THERAPEUTIC TABLET PO SCH (08:15)
[2023-03-23 08:27] VITALS: BP 143/77; PULSE 113; RESP 17; TEMP 97.4; O2SAT 98
[2023-03-23 15:45] LABS: AMPHET/METH SCREEN,URINE NEGATIVE (NEGATIVE); BARBITURATE SCREEN, URINE NEGATIVE (NEGATIVE); BENZODIAZEPINES SCREEN,URINE NEGATIVE (NEGATIVE); CANNABINOID SCREEN,URINE NEGATIVE (NEGATIVE); COCAINE SCREEN,URINE NEGATIVE (NEGATIVE); METHADONE SCREEN, URINE NEGATIVE (NEGATIVE); OPIATE SCREEN,URINE NEGATIVE (NEGATIVE); PHENCYCLIDINE SCREEN,URINE NEGATIVE (NEGATIVE)
[2023-03-23 20:15] VITALS: BP 127/77; PULSE 64; RESP 18; TEMP 98.2; O2SAT 98
[2023-03-23 21:37] VITALS: RESP 16
[2023-03-23] MEDS: TraMADol HCL 50 MG TABLET PO PRN (21:37)
[2023-03-23] MEDS: ZOLPIDEM TARTRATE 10 MG TABLET PO PRN (21:37)
[2023-03-23 22:37] VITALS: RESP 17
[2023-03-24] MEDS: BENZTROPINE MESYLATE 1 MG TABLET PO SCH ×2 (08:43→16:29)
[2023-03-24] MEDS: RisperiDONE 2 MG TABLET PO SCH ×2 (08:43→20:33)
[2023-03-24] MEDS: MULTIVITAMINS WITH MINERALS, THERAPEUTIC TABLET PO SCH (08:43)
[2023-03-24 09:02] VITALS: BP 115/86; PULSE 82; RESP 19; TEMP 97.3; O2SAT 100
[2023-03-24 17:02] VITALS: BP 138/84; PULSE 102; RESP 18
[2023-03-24] MEDS: IBUPROFEN 400 MG TABLET PO PRN (17:04)
[2023-03-24 18:07] VITALS: RESP 18
[2023-03-24] MEDS: FLUTICASONE PROPIONATE 50 MCG/SPRAY 16 GM NASAL SPRAY NASAL PRN (19:41)
[2023-03-24 20:43] VITALS: BP 135/76; PULSE 80; RESP 19; TEMP 97.7; O2SAT 99
[2023-03-25] VITALS (7 sets, daily range): BP systolic 116–130; BP diastolic 77–85; PULSE 70–85; RESP 16–18; TEMP 96.5–97.8; O2SAT 98
[2023-03-25] MEDS: FLUTICASONE PROPIONATE 50 MCG/SPRAY 16 GM NASAL SPRAY NASAL PRN (01:46)
[2023-03-25] MEDS: TraMADol HCL 50 MG TABLET PO PRN ×2 (01:46→14:44)
[2023-03-25] MEDS: IBUPROFEN 400 MG TABLET PO PRN (07:00)
[2023-03-25] MEDS: RisperiDONE 2 MG TABLET PO SCH ×2 (08:10→20:18)
[2023-03-25] MEDS: BENZTROPINE MESYLATE 1 MG TABLET PO SCH ×2 (08:10→16:11)
[2023-03-25] MEDS: MULTIVITAMINS WITH MINERALS, THERAPEUTIC TABLET PO SCH (08:10)
[2023-03-25] MEDS: ACETAMINOPHEN 325 MG TABLET PO PRN (12:08)
[2023-03-26] MEDS: FLUTICASONE PROPIONATE 50 MCG/SPRAY 16 GM NASAL SPRAY NASAL PRN (04:03)
[2023-03-26] MEDS: BENZTROPINE MESYLATE 1 MG TABLET PO SCH ×2 (08:03→16:55)
[2023-03-26] MEDS: RisperiDONE 2 MG TABLET PO SCH ×2 (08:03→20:12)
[2023-03-26] MEDS: MULTIVITAMINS WITH MINERALS, THERAPEUTIC TABLET PO SCH (08:03)
[2023-03-26 08:28] VITALS: BP 115/79; PULSE 74; RESP 17; TEMP 97.8; O2SAT 100
[2023-03-26 12:37] VITALS: RESP 17
[2023-03-26] MEDS: IBUPROFEN 400 MG TABLET PO PRN (12:37)
[2023-03-26 13:37] VITALS: RESP 16
[2023-03-26 20:28] VITALS: BP 110/69; PULSE 74; RESP 17; TEMP 97.8; O2SAT 74
[2023-03-27] VITALS (7 sets, daily range): BP systolic 111–122; BP diastolic 61–86; PULSE 77–88; RESP 18–20; TEMP 97.5–98.2; O2SAT 96–98
[2023-03-27] MEDS: ZOLPIDEM TARTRATE 10 MG TABLET PO PRN (01:28)
[2023-03-27] MEDS: FLUTICASONE PROPIONATE 50 MCG/SPRAY 16 GM NASAL SPRAY NASAL PRN (01:28)
[2023-03-27] MEDS: BENZTROPINE MESYLATE 1 MG TABLET PO SCH ×2 (08:26→16:14)
[2023-03-27] MEDS: RisperiDONE 2 MG TABLET PO SCH ×2 (08:26→20:39)
[2023-03-27] MEDS: MULTIVITAMINS WITH MINERALS, THERAPEUTIC TABLET PO SCH (08:26)
[2023-03-27] MEDS: IBUPROFEN 400 MG TABLET PO PRN (10:40)
[2023-03-27] MEDS: SERTRALINE HCL 50 MG TABLET PO SCH (13:02)
[2023-03-27] MEDS: TraMADol HCL 50 MG TABLET PO PRN (16:15)
[2023-03-28] MEDS: FLUTICASONE PROPIONATE 50 MCG/SPRAY 16 GM NASAL SPRAY NASAL PRN (03:25)
[2023-03-28 08:26] VITALS: BP 113/71; PULSE 89; RESP 19; TEMP 98.3; O2SAT 98
[2023-03-28] MEDS: MULTIVITAMINS WITH MINERALS, THERAPEUTIC TABLET PO SCH (08:26)
[2023-03-28] MEDS: RisperiDONE 2 MG TABLET PO SCH ×2 (08:27→20:42)
[2023-03-28] MEDS: BENZTROPINE MESYLATE 1 MG TABLET PO SCH ×2 (08:27→16:43)
[2023-03-28] MEDS: SERTRALINE HCL 50 MG TABLET PO SCH (08:27)
[2023-03-28] MEDS: TraMADol HCL 50 MG TABLET PO PRN (09:13)
[2023-03-28] MEDS: ACETAMINOPHEN 325 MG TABLET PO PRN (16:47)
[2023-03-28 16:48] VITALS: RESP 18
[2023-03-28 17:47] VITALS: RESP 18
[2023-03-28 20:37] VITALS: BP 123/81; PULSE 99; RESP 18; TEMP 98.1; O2SAT 97
[2023-03-29] MEDS: FLUTICASONE PROPIONATE 50 MCG/SPRAY 16 GM NASAL SPRAY NASAL PRN (06:57)
[2023-03-29 08:24] VITALS: BP 118/67; PULSE 96; RESP 17; TEMP 98.2; O2SAT 98
[2023-03-29] MEDS: BENZTROPINE MESYLATE 1 MG TABLET PO SCH ×2 (08:33→17:02)
[2023-03-29] MEDS: MULTIVITAMINS WITH MINERALS, THERAPEUTIC TABLET PO SCH (08:33)
[2023-03-29] MEDS: SERTRALINE HCL 50 MG TABLET PO SCH (08:33)
[2023-03-29] MEDS: RisperiDONE 2 MG TABLET PO SCH ×2 (08:33→22:08)
[2023-03-29 09:07] VITALS: RESP 17
[2023-03-29] MEDS: TraMADol HCL 50 MG TABLET PO PRN (09:07)
[2023-03-29 10:07] VITALS: RESP 16
[2023-03-29 20:04] VITALS: BP 112/68; PULSE 88; RESP 16; TEMP 98.6
[2023-03-29] MEDS: ZOLPIDEM TARTRATE 10 MG TABLET PO PRN (22:50)
[2023-03-30] MEDS: MULTIVITAMINS WITH MINERALS, THERAPEUTIC TABLET PO SCH (08:03)
[2023-03-30] MEDS: SERTRALINE HCL 50 MG TABLET PO SCH (08:03)
[2023-03-30] MEDS: RisperiDONE 2 MG TABLET PO SCH ×2 (08:03→20:15)
[2023-03-30] MEDS: BENZTROPINE MESYLATE 1 MG TABLET PO SCH ×2 (08:03→16:23)
[2023-03-30 08:12] VITALS: BP 108/67; PULSE 80; RESP 17; TEMP 97.7; O2SAT 97
[2023-03-30 09:00] VITALS: RESP 17
[2023-03-30] MEDS: TraMADol HCL 50 MG TABLET PO PRN ×2 (09:00→21:02)
[2023-03-30 10:00] VITALS: RESP 16
[2023-03-30] MEDS: FLUTICASONE PROPIONATE 50 MCG/SPRAY 16 GM NASAL SPRAY NASAL PRN (15:19)
[2023-03-30 20:09] VITALS: BP 129/87; PULSE 78; RESP 18; TEMP 98.2; O2SAT 98
[2023-03-31] VITALS (8 sets, daily range): BP systolic 102–122; BP diastolic 65–66; PULSE 83–100; RESP 16–18; TEMP 97–97.6; O2SAT 98–99
[2023-03-31] MEDS: SERTRALINE HCL 50 MG TABLET PO SCH (08:14)
[2023-03-31] MEDS: BENZTROPINE MESYLATE 1 MG TABLET PO SCH ×2 (08:14→16:50)
[2023-03-31] MEDS: MULTIVITAMINS WITH MINERALS, THERAPEUTIC TABLET PO SCH (08:14)
[2023-03-31] MEDS: RisperiDONE 2 MG TABLET PO SCH ×2 (08:14→20:17)
[2023-03-31] MEDS: FLUTICASONE PROPIONATE 50 MCG/SPRAY 16 GM NASAL SPRAY NASAL PRN ×2 (08:17→16:52)
[2023-03-31] MEDS: TraMADol HCL 50 MG TABLET PO PRN ×2 (09:04→21:41)
[2023-03-31] MEDS: GuaiFENesin/D-METHORPHAN [SUGAR-FREE] 200-20MG/10 ML SYRUP UDCUP PO PRN (13:32)
[2023-03-31] MEDS: IBUPROFEN 400 MG TABLET PO PRN (16:52)
[2023-04-01] MEDS: FLUTICASONE PROPIONATE 50 MCG/SPRAY 16 GM NASAL SPRAY NASAL PRN (06:18)
[2023-04-01 08:03] VITALS: BP 102/63; PULSE 68; RESP 16; TEMP 98.2; O2SAT 97
[2023-04-01] MEDS: RisperiDONE 2 MG TABLET PO SCH ×2 (08:21→20:01)
[2023-04-01] MEDS: MULTIVITAMINS WITH MINERALS, THERAPEUTIC TABLET PO SCH (08:21)
[2023-04-01] MEDS: SERTRALINE HCL 50 MG TABLET PO SCH (08:21)
[2023-04-01] MEDS: BENZTROPINE MESYLATE 1 MG TABLET PO SCH ×2 (08:21→16:04)
[2023-04-01 10:21] VITALS: RESP 17
[2023-04-01] MEDS: TraMADol HCL 50 MG TABLET PO PRN (10:21)
[2023-04-01] MEDS: GuaiFENesin/D-METHORPHAN [SUGAR-FREE] 200-20MG/10 ML SYRUP UDCUP PO PRN ×2 (11:04→18:23)
[2023-04-01 11:21] VITALS: RESP 16
[2023-04-01 18:23] VITALS: RESP 17
[2023-04-01] MEDS: IBUPROFEN 400 MG TABLET PO PRN (18:23)
[2023-04-01 19:23] VITALS: RESP 16
[2023-04-01 20:03] VITALS: BP 111/77; PULSE 90; RESP 16; TEMP 97.8
[2023-04-02] MEDS: FLUTICASONE PROPIONATE 50 MCG/SPRAY 16 GM NASAL SPRAY NASAL PRN ×2 (02:33→13:13)
[2023-04-02] MEDS: MULTIVITAMINS WITH MINERALS, THERAPEUTIC TABLET PO SCH (08:36)
[2023-04-02 08:37] VITALS: BP 120/80; PULSE 71; RESP 18; TEMP 97.4; O2SAT 95
[2023-04-02] MEDS: BENZTROPINE MESYLATE 1 MG TABLET PO SCH ×2 (08:37→16:30)
[2023-04-02] MEDS: SERTRALINE HCL 50 MG TABLET PO SCH (08:37)
[2023-04-02] MEDS: TraMADol HCL 50 MG TABLET PO PRN (08:37)
[2023-04-02] MEDS: RisperiDONE 2 MG TABLET PO SCH ×2 (08:37→20:30)
[2023-04-02 09:37] VITALS: RESP 18
[2023-04-02 21:51] VITALS: BP 132/84; PULSE 68; RESP 18; TEMP 97.7; O2SAT 98
[2023-04-03 08:01] VITALS: BP 121/79; PULSE 82; RESP 18; TEMP 97.8; O2SAT 97
[2023-04-03] MEDS: TraMADol HCL 50 MG TABLET PO PRN (08:01)
[2023-04-03 08:08] VITALS: BP 121/79; PULSE 82; RESP 16; TEMP 97.7; O2SAT 97
[2023-04-03] MEDS: FLUTICASONE PROPIONATE 50 MCG/SPRAY 16 GM NASAL SPRAY NASAL PRN (08:37)
[2023-04-03] MEDS: MULTIVITAMINS WITH MINERALS, THERAPEUTIC TABLET PO SCH (08:37)
[2023-04-03] MEDS: BENZTROPINE MESYLATE 1 MG TABLET PO SCH ×2 (08:37→16:31)
[2023-04-03] MEDS: RisperiDONE 2 MG TABLET PO SCH ×2 (08:37→20:30)
[2023-04-03] MEDS: SERTRALINE HCL 50 MG TABLET PO SCH (08:37)
[2023-04-03 09:01] VITALS: RESP 18
[2023-04-03 20:17] VITALS: BP 135/82; PULSE 72; RESP 18; TEMP 98.2; O2SAT 97
[2023-04-04 08:15] VITALS: BP 132/82; PULSE 82; RESP 18; TEMP 98.4; O2SAT 97
[2023-04-04] MEDS: MULTIVITAMINS WITH MINERALS, THERAPEUTIC TABLET PO SCH (08:49)
[2023-04-04] MEDS: BENZTROPINE MESYLATE 1 MG TABLET PO SCH ×2 (08:49→16:33)
[2023-04-04] MEDS: SERTRALINE HCL 50 MG TABLET PO SCH (08:49)
[2023-04-04] MEDS: RisperiDONE 2 MG TABLET PO SCH ×2 (08:49→20:33)
[2023-04-04] MEDS: TraMADol HCL 50 MG TABLET PO PRN (10:02)
[2023-04-04] MEDS: IBUPROFEN 400 MG TABLET PO PRN (11:32)
[2023-04-04 20:15] VITALS: BP 118/64; PULSE 84; RESP 17; TEMP 97.2; O2SAT 98
[2023-04-05] MEDS: MULTIVITAMINS WITH MINERALS, THERAPEUTIC TABLET PO SCH (07:59)
[2023-04-05] MEDS: SERTRALINE HCL 50 MG TABLET PO SCH (07:59)
[2023-04-05] MEDS: BENZTROPINE MESYLATE 1 MG TABLET PO SCH ×2 (07:59→16:34)
[2023-04-05] MEDS: RisperiDONE 2 MG TABLET PO SCH ×2 (07:59→20:29)
[2023-04-05] MEDS: TraMADol HCL 50 MG TABLET PO PRN ×2 (08:00→20:11)
[2023-04-05 08:18] VITALS: BP 121/69; PULSE 88; RESP 17; TEMP 98.6; O2SAT 97
[2023-04-05] MEDS: IBUPROFEN 400 MG TABLET PO PRN (12:03)
[2023-04-05] MEDS: ACETAMINOPHEN 325 MG TABLET PO PRN (16:34)
[2023-04-05 16:35] VITALS: RESP 18
[2023-04-05 17:34] VITALS: RESP 18
[2023-04-05 20:11] VITALS: BP 115/77; PULSE 81; RESP 18; TEMP 98.1; O2SAT 98
[2023-04-05 21:08] VITALS: RESP 18
[2023-04-06] MEDS: RisperiDONE 2 MG TABLET PO SCH ×2 (08:34→20:31)
[2023-04-06] MEDS: BENZTROPINE MESYLATE 1 MG TABLET PO SCH ×2 (08:34→16:09)
[2023-04-06] MEDS: SERTRALINE HCL 50 MG TABLET PO SCH (08:34)
[2023-04-06] MEDS: MULTIVITAMINS WITH MINERALS, THERAPEUTIC TABLET PO SCH (08:34)
[2023-04-06] MEDS: TraMADol HCL 50 MG TABLET PO PRN ×2 (08:35→20:55)
[2023-04-06 10:24] VITALS: BP 115/80; PULSE 81; RESP 17; TEMP 98.1; O2SAT 100
[2023-04-06] MEDS: IBUPROFEN 400 MG TABLET PO PRN (11:55)
[2023-04-06 20:30] VITALS: BP 137/83; PULSE 71; RESP 18; TEMP 98.1; O2SAT 98
[2023-04-07 08:27] VITALS: BP 123/88; PULSE 116; RESP 18; TEMP 97.8; O2SAT 96
[2023-04-07] MEDS: MULTIVITAMINS WITH MINERALS, THERAPEUTIC TABLET PO SCH (08:34)
[2023-04-07] MEDS: SERTRALINE HCL 50 MG TABLET PO SCH (08:34)
[2023-04-07] MEDS: RisperiDONE 2 MG TABLET PO SCH ×2 (08:34→20:30)
[2023-04-07] MEDS: BENZTROPINE MESYLATE 1 MG TABLET PO SCH ×2 (08:34→16:28)
[2023-04-07 08:54] VITALS: BP 131/82; PULSE 101; RESP 18
[2023-04-07] MEDS: TraMADol HCL 50 MG TABLET PO PRN (09:29)
[2023-04-07 10:30] VITALS: RESP 18
[2023-04-07 13:29] VITALS: BP 122/79; PULSE 92; RESP 18
[2023-04-07] MEDS: IBUPROFEN 400 MG TABLET PO PRN (13:29)
[2023-04-07 14:29] VITALS: RESP 18
[2023-04-07] MEDS: NICOTINE 14 MG/24 HOUR PATCH TD PRN (16:51)
[2023-04-07 20:00] VITALS: BP 136/84; PULSE 78; RESP 18; TEMP 97.6; O2SAT 98
[2023-04-08] VITALS (10 sets, daily range): BP systolic 120–127; BP diastolic 72–78; PULSE 82–83; RESP 18–20; TEMP 97.6–97.8; O2SAT 96–97
[2023-04-08] MEDS: MULTIVITAMINS WITH MINERALS, THERAPEUTIC TABLET PO SCH (08:02)
[2023-04-08] MEDS: IBUPROFEN 400 MG TABLET PO PRN ×2 (08:02→16:12)
[2023-04-08] MEDS: SERTRALINE HCL 50 MG TABLET PO SCH (08:02)
[2023-04-08] MEDS: BENZTROPINE MESYLATE 1 MG TABLET PO SCH ×2 (08:02→16:12)
[2023-04-08] MEDS: RisperiDONE 2 MG TABLET PO SCH ×2 (08:02→20:22)
[2023-04-08] MEDS: TraMADol HCL 50 MG TABLET PO PRN (10:18)
[2023-04-08] MEDS: ACETAMINOPHEN 325 MG TABLET PO PRN (13:56)
[2023-04-09 08:30] VITALS: BP 110/78; PULSE 98; RESP 18; TEMP 98; O2SAT 98
[2023-04-09] MEDS: SERTRALINE HCL 50 MG TABLET PO SCH (09:01)
[2023-04-09] MEDS: RisperiDONE 2 MG TABLET PO SCH ×2 (09:01→20:48)
[2023-04-09] MEDS: MULTIVITAMINS WITH MINERALS, THERAPEUTIC TABLET PO SCH (09:01)
[2023-04-09] MEDS: BENZTROPINE MESYLATE 1 MG TABLET PO SCH ×2 (09:02→17:02)
[2023-04-09 09:06] VITALS: RESP 18
[2023-04-09] MEDS: TraMADol HCL 50 MG TABLET PO PRN (09:06)
[2023-04-09] MEDS: FLUTICASONE PROPIONATE 50 MCG/SPRAY 16 GM NASAL SPRAY NASAL PRN (09:09)
[2023-04-09 10:06] VITALS: RESP 17
[2023-04-09] MEDS: ACETAMINOPHEN 325 MG TABLET PO PRN (11:08)
[2023-04-09] MEDS: IBUPROFEN 400 MG TABLET PO PRN (12:24)
[2023-04-09 12:26] VITALS: RESP 17
[2023-04-09 13:24] VITALS: RESP 16
[2023-04-09 20:28] VITALS: BP 101/71; PULSE 81; RESP 18; TEMP 97.4; O2SAT 98
[2023-04-09] MEDS: ZOLPIDEM TARTRATE 10 MG TABLET PO PRN (21:57)
[2023-04-09] MEDS: LORazepam 2 MG TABLET PO PRN (21:57)
[2023-04-10] MEDS: RisperiDONE 2 MG TABLET PO SCH ×2 (08:38→20:42)
[2023-04-10] MEDS: MULTIVITAMINS WITH MINERALS, THERAPEUTIC TABLET PO SCH (08:38)
[2023-04-10] MEDS: BENZTROPINE MESYLATE 1 MG TABLET PO SCH ×2 (08:38→16:36)
[2023-04-10] MEDS: SERTRALINE HCL 50 MG TABLET PO SCH (08:39)
[2023-04-10] MEDS: TraMADol HCL 50 MG TABLET PO PRN (08:50)
[2023-04-10 11:11] VITALS: BP 109/69; PULSE 121; RESP 17; TEMP 97.7; O2SAT 96
[2023-04-10] MEDS: NICOTINE 14 MG/24 HOUR PATCH TD PRN (16:22)
[2023-04-10 20:15] VITALS: BP 121/93; PULSE 83; RESP 20; TEMP 97.6; O2SAT 99
[2023-04-11] MEDS: SERTRALINE HCL 50 MG TABLET PO SCH (08:34)
[2023-04-11] MEDS: MULTIVITAMINS WITH MINERALS, THERAPEUTIC TABLET PO SCH (08:34)
[2023-04-11] MEDS: BENZTROPINE MESYLATE 1 MG TABLET PO SCH ×2 (08:34→16:02)
[2023-04-11] MEDS: RisperiDONE 2 MG TABLET PO SCH ×2 (08:36→21:36)
[2023-04-11] MEDS: IBUPROFEN 400 MG TABLET PO PRN ×2 (08:52→17:56)
[2023-04-11 08:54] VITALS: BP 128/88; PULSE 86; RESP 20; TEMP 97.7; O2SAT 99
[2023-04-11] MEDS: TraMADol HCL 50 MG TABLET PO PRN ×2 (10:19→21:36)
[2023-04-11 20:38] VITALS: BP 113/75; PULSE 84; RESP 17; TEMP 97.4; O2SAT 97
[2023-04-11] MEDS: ZOLPIDEM TARTRATE 10 MG TABLET PO PRN (21:37)
[2023-04-12 08:30] VITALS: BP 126/79; PULSE 79; RESP 17; TEMP 98.9; O2SAT 97
[2023-04-12] MEDS: BENZTROPINE MESYLATE 1 MG TABLET PO SCH ×2 (08:31→15:34)
[2023-04-12] MEDS: RisperiDONE 2 MG TABLET PO SCH ×2 (08:31→20:06)
[2023-04-12] MEDS: MULTIVITAMINS WITH MINERALS, THERAPEUTIC TABLET PO SCH (08:31)
[2023-04-12] MEDS: SERTRALINE HCL 50 MG TABLET PO SCH (08:31)
[2023-04-12] MEDS: TraMADol HCL 50 MG TABLET PO PRN (09:37)
[2023-04-12 20:25] VITALS: BP 127/84; PULSE 85; RESP 19; TEMP 97.6; O2SAT 99
[2023-04-12] MEDS: ZOLPIDEM TARTRATE 10 MG TABLET PO PRN (20:29)
[2023-04-13 08:39] VITALS: BP 120/80; PULSE 89; RESP 18; TEMP 97.9; O2SAT 99
[2023-04-13] MEDS: RisperiDONE 2 MG TABLET PO SCH (08:52)
[2023-04-13] MEDS: MULTIVITAMINS WITH MINERALS, THERAPEUTIC TABLET PO SCH (08:52)
[2023-04-13] MEDS: BENZTROPINE MESYLATE 1 MG TABLET PO SCH (08:52)
[2023-04-13] MEDS: SERTRALINE HCL 50 MG TABLET PO SCH (08:53)
[2023-04-13] MEDS: IBUPROFEN 400 MG TABLET PO PRN (10:00)
[2023-04-13] MEDS ORDERED: RISP2TAB86 PO ×2 (10:52→16:05)
[2023-04-13] MEDS ORDERED: SERT-158 PO (10:53)
[2023-04-13] MEDS ORDERED: BENZ1TAB84 PO ×2 (10:53→16:05)
[2023-04-13] MEDS ORDERED: SERT-439 PO (16:05)
== END 2023-04-13 12:00 | disposition home or self-care (01) | DRG 885 ==
LOC: EMS 22:38 → B2X 03-20 09:28
PROVIDERS: ADMIT Psychiatry & Neurology Psychiatry; ATTEND Psychiatry & Neurology Psychiatry
DX: F20.0 Paranoid schizophrenia (principal); Z68.41 Body mass index [BMI] 40.0-44.9, adult; E66.01 Morbid (severe) obesity due to excess calories; E11.9 Type 2 diabetes mellitus without complications; J44.9 Chronic obstructive pulmonary disease, unspecified; E87.6 Hypokalemia; D64.9 Anemia, unspecified; Z20.822 Contact with and (suspected) exposure to COVID-19; F32.A Depression, unspecified; G43.909 Migraine, unspecified, not intractable, without status migrainosus; M54.50 Low back pain, unspecified; F41.9 Anxiety disorder, unspecified; G89.29 Other chronic pain; Z79.899 Other long term (current) drug therapy; Z87.891 Personal history of nicotine dependence
CPT/HCPCS: 80053; 80061; 80307; 82962; 83036; 84132; 84443; 85025; 90732; 99285; G0480; J1200; J1885

== ENCOUNTER 2023-04-18 11:39 | Inpatient (IN) | payer MEDICARE, MEDICAID ==
[~2023-04-18] VITALS: Ht 154.9 cm; Wt 104.5 kg
[~2023-04-18 11:39] MED LIST changes: +BENZ1TAB84 PO; -RISP2TAB45 PO; +RISP2TAB86 PO; +SERT-158 PO; +SERT-439 PO
[2023-04-18 12:20] LABS: BASOPHILS % (AUTO) 0.3 % (0.0-2.0); EOSINOPHILS % (AUTO) 1.6 % (1.0-6.0); HEMATOCRIT 39.9 % (36-46); HEMOGLOBIN 12.6 g/dL (12.0-16.0); LYMPHOCYTES # (AUTO) 3.7 K/uL (1.0-4.8); MEAN CORPUSCULAR HEMOGLOBIN 25.1 pg (26.0-34.0); MEAN CORPUSCULAR HGB CONC 31.6 G/dL (31.0-37.0); MEAN CORPUSCULAR VOLUME 79 fL (80-100); MONOCYTES # (AUTO) 0.4 K/uL (0.1-1.0); MONOCYTES % (AUTO) 6.3 % (2.0-9.0); NEUTROPHILS # (AUTO) 2.5 K/uL (1.8-7.7); NEUTROPHILS % (AUTO) 36.8 % (40.0-70.0); PLATELET COUNT (AUTO) 366 K/uL (150-450); RED BLOOD CELL COUNT(AUTO) 5.03 MIL/uL (4.00-5.20); RED CELL DISTRIBUTION WIDTH 15.6 % (11.5-14.5); WHITE BLOOD COUNT (AUTO) 6.8 K/uL (4.5-11.0)
[2023-04-18] MEDS ORDERED: SODIUM CHLORIDE 0.9% 1,000 ML IV ONE (12:30)
[2023-04-18] MEDS ORDERED: METOCLOPRAMIDE HCL 5 MG/ML 2 ML VIAL IVP ONE (12:30)
[2023-04-18] MEDS ORDERED: ONDANSETRON HCL 4 MG/2 ML VIAL IVP ONE (12:30)
[2023-04-18] MEDS ORDERED: DiphenhydrAMINE HCL 50 MG/ML VIAL IVP ONE (12:30)
[2023-04-18] MEDS ORDERED: ACETAMINOPHEN 500 MG TABLET PO ONE (12:30)
[2023-04-18 12:31] LABS: COVID AG,FIA SOURCE NASOPHARYNGEAL
[2023-04-18 12:32] LABS: ANION GAP 8 mmol/L (8-16); CALCIUM, TOTAL 9.2 mg/dL (8.8-10.5); CARBON DIOXIDE 27 mmol/L (22-29); CHLORIDE 105 mmol/L (98-107); CREATININE 0.71 mg/dL (0.60-1.30); GLOMERULAR FILTR. RATE CALC > 60 mL/min (>60); GLUCOSE,RANDOM 110 mg/dL (70-110); POTASSIUM 3.5 mmol/L (3.5-5.1); SODIUM SERUM 140 mmol/L (136-145); UREA NITROGEN, BLOOD 7 mg/dL (7-18)
[2023-04-18 12:37] LABS: ALANINE AMINOTRANSFERASE 18 U/L (12-78); ALKALINE PHOSPHATASE 89 U/L (46-116); ASPARTATE AMINOTRANSFERASE 14 U/L (15-37); BILIRUBIN,TOTAL 0.2 mg/dL (0.1-1.0); LIPASE 33 U/L (16-77); TOTAL PROTEIN, SERUM 7.9 g/dL (6.4-8.2)
[2023-04-18 12:40] LABS: SARS-COV2 (COVID) ANTIGEN,FIA Negative (Negative)
[2023-04-18 13:02] LABS: HCG,QUANTITATIVE < 1 mIU/mL (0-6)
[2023-04-18] MEDS ORDERED: QUEtiapine FUMARATE 100 MG TABLET PO PRN (14:45)
[2023-04-18 15:53] LABS: APPEARANCE,URINE HAZY (CLEAR); BILIRUBIN,URINE NEGATIVE (NEGATIVE); COLOR,URINE LIGHT YELLOW (YELLOW); GLUCOSE, URINE (UA) NEGATIVE (NEGATIVE); KETONES,URINE NEGATIVE (NEGATIVE); LEUKOCYTE ESTERASE ,URINE NEGATIVE (NEGATIVE); NITRATE,URINE NEGATIVE (NEGATIVE); OCCULT BLOOD,URINE TRACE (NEGATIVE); PH,URINE 5.5 (5.0-8.0); PROTEIN,URINE 30-70 mg/dL (NEGATIVE); SPECIFIC GRAVITIY, URINE 1.017 (1.003-1.030); UROBILINOGEN,URINE <=1.0 mg/dL (<=1.0)
[2023-04-18 16:01] LABS: ALCOHOL, URINE DRUG SCREEN NEGATIVE (NEGATIVE); AMPHET/METH SCREEN,URINE NEGATIVE (NEGATIVE); BARBITURATE SCREEN, URINE NEGATIVE (NEGATIVE); BENZODIAZEPINES SCREEN,URINE NEGATIVE (NEGATIVE); CANNABINOID SCREEN,URINE NEGATIVE (NEGATIVE); COCAINE SCREEN,URINE NEGATIVE (NEGATIVE); METHADONE SCREEN, URINE NEGATIVE (NEGATIVE); OPIATE SCREEN,URINE NEGATIVE (NEGATIVE); PHENCYCLIDINE SCREEN,URINE NEGATIVE (NEGATIVE)
[2023-04-18 16:05] LABS: PH,URINE DRUG SCREEN 5.5 (5.0-8.0)
[2023-04-18 16:15] LABS: BACTERIA,URINE None Seen /HPF (None Seen); RBC,URINE 0-2 /HPF (0-2); SQUAMOUS EPITHELIAL CELL,UR Rare /LPF (None Seen); WBC,URINE None Seen /HPF (0-5)
[2023-04-18 17:24] VITALS: BP 133/77; PULSE 98; RESP 18; TEMP 98.3; O2SAT 98
[2023-04-18] MEDS: LORazepam 2 MG TABLET PO PRN ×2 (18:09→23:31)
[2023-04-18] MEDS: ZOLPIDEM TARTRATE 10 MG TABLET PO PRN (21:36)
[2023-04-18 22:28] VITALS: RESP 20
[2023-04-19] MEDS ORDERED: LOPERAMIDE HCL 2 MG CAPSULE PO PRN (06:15)
[2023-04-19] MEDS ORDERED: ALBUTEROL SULFATE HFA 90 MCG/PUFF 8 GM INHALER IH PRN (06:15)
[2023-04-19] MEDS ORDERED: MAGNESIUM HYDROXIDE SUSPENSION 30 ML UDCUP PO PRN (06:15)
[2023-04-19] MEDS ORDERED: GuaiFENesin/D-METHORPHAN [SUGAR-FREE] 200-20MG/10 ML SYRUP UDCUP PO PRN (06:15)
[2023-04-19] MEDS ORDERED: MAG HYDROX/AL HYDROX/SIMETH ES 30 ML SUSPENSION UDCUP PO PRN (06:15)
[2023-04-19] MEDS ORDERED: CloNIDine HCL 0.1 MG TABLET PO PRN (06:15)
[2023-04-19] MEDS ORDERED: DOCUSATE SODIUM 100 MG CAPSULE PO PRN (06:15)
[2023-04-19] MEDS ORDERED: NICOTINE 14 MG/24 HOUR PATCH TD PRN (06:15)
[2023-04-19] MEDS ORDERED: PETROLATUM,WHITE 28 GM JELLY TP PRN (06:15)
[2023-04-19] MEDS ORDERED: ACETAMINOPHEN 325 MG TABLET PO PRN (06:15)
[2023-04-19 09:47] VITALS: RESP 16
[2023-04-19] MEDS: QUEtiapine FUMARATE 25 MG TABLET PO SCH ×2 (13:45→21:27)
[2023-04-19 13:46] VITALS: RESP 18
[2023-04-19] MEDS: IBUPROFEN 400 MG TABLET PO PRN ×2 (13:46→15:45)
[2023-04-19 14:13] LABS: HEMATOCRIT 39.7 % (36-46); HEMOGLOBIN 12.5 g/dL (12.0-16.0); MEAN CORPUSCULAR HEMOGLOBIN 25.2 pg (26.0-34.0); MEAN CORPUSCULAR HGB CONC 31.6 G/dL (31.0-37.0); MEAN CORPUSCULAR VOLUME 80 fL (80-100); PLATELET COUNT (AUTO) 312 K/uL (150-450); RED BLOOD CELL COUNT(AUTO) 4.97 MIL/uL (4.00-5.20)
[2023-04-19 14:34] LABS: ALANINE AMINOTRANSFERASE 17 U/L (12-78); ALBUMIN 3.6 g/dL (3.4-5.0); ALKALINE PHOSPHATASE 81 U/L (46-116); ANION GAP 8 mmol/L (8-16); ASPARTATE AMINOTRANSFERASE 13 U/L (15-37); BILIRUBIN,TOTAL 0.1 mg/dL (0.1-1.0); CALCIUM, TOTAL 8.7 mg/dL (8.8-10.5); CARBON DIOXIDE 27 mmol/L (22-29); CHLORIDE 104 mmol/L (98-107); CREATININE 0.64 mg/dL (0.60-1.30); GLOMERULAR FILTR. RATE CALC > 60 mL/min (>60); GLUCOSE,RANDOM 103 mg/dL (70-110); POTASSIUM 3.8 mmol/L (3.5-5.1); SODIUM SERUM 139 mmol/L (136-145); TOTAL PROTEIN, SERUM 7.3 g/dL (6.4-8.2); UREA NITROGEN, BLOOD 7 mg/dL (7-18)
[2023-04-19 14:45] LABS: BAND NEUTROPHILS % (MANUAL) 0 % (0-5)
[2023-04-19 14:46] VITALS: RESP 18
[2023-04-19 14:47] LABS: LYMPHOCYTES % (MANUAL) 56 % (22-44); MONOCYTES % (MANUAL) 7 % (2-9); RBC MORPHOLOGY COMMENT NORMAL RBC MORPH; SEGMENTED NEUTROPHILS % 37 % (40-70); TOTAL CELLS COUNTED 100
[2023-04-19 14:55] LABS: THYROID STIMULATING HORMONE 0.92 uIU/mL (0.36-3.74)
[2023-04-19 15:45] VITALS: BP 130/74; PULSE 78; RESP 17; TEMP 97.5; O2SAT 98
[2023-04-19] MEDS: SERTRALINE HCL 50 MG TABLET PO SCH (17:08)
[2023-04-19 21:05] VITALS: BP 134/81; PULSE 82; RESP 18; TEMP 97.1
[2023-04-20] MEDS: QUEtiapine FUMARATE 25 MG TABLET PO SCH ×2 (08:23→21:12)
[2023-04-20] MEDS: SERTRALINE HCL 50 MG TABLET PO SCH (08:23)
[2023-04-20] MEDS: IBUPROFEN 400 MG TABLET PO PRN ×2 (08:23→17:24)
[2023-04-20 08:25] VITALS: BP 106/76; PULSE 88; RESP 18; TEMP 97.6
[2023-04-20 18:27] VITALS: TEMP 97.2
[2023-04-20 21:04] VITALS: BP 133/75; PULSE 82; RESP 18; TEMP 96.9; O2SAT 100
[2023-04-21 08:13] LABS: CHOL/HDL RATIO 2.9 (3.9-5.7)
[2023-04-21 08:15] VITALS: BP 143/99; PULSE 96; RESP 18; TEMP 97.7
[2023-04-21] MEDS: QUEtiapine FUMARATE 25 MG TABLET PO SCH ×2 (08:52→21:13)
[2023-04-21] MEDS: SERTRALINE HCL 50 MG TABLET PO SCH (08:52)
[2023-04-21] MEDS: IBUPROFEN 400 MG TABLET PO PRN (08:53)
[2023-04-21 09:53] VITALS: RESP 18
[2023-04-21 14:36] VITALS: BP 136/84; PULSE 86; RESP 18; TEMP 97.6
[2023-04-21] MEDS: TraMADol HCL 50 MG TABLET PO PRN (14:36)
[2023-04-21 15:16] VITALS: BP 132/78; PULSE 84; RESP 18; TEMP 97.3
[2023-04-21] MEDS: DIMETHICONE/COLLOIDAL OATMEAL 227 GM LOTION TP SCH (17:57)
[2023-04-21 22:03] VITALS: BP 133/96; PULSE 85; RESP 18; TEMP 98.4
[2023-04-22 08:39] VITALS: BP 131/85; PULSE 79; RESP 18; TEMP 96.8; O2SAT 99
[2023-04-22] MEDS: QUEtiapine FUMARATE 25 MG TABLET PO SCH ×2 (08:44→20:53)
[2023-04-22 08:45] VITALS: RESP 18
[2023-04-22] MEDS: TraMADol HCL 50 MG TABLET PO PRN ×2 (08:45→16:59)
[2023-04-22] MEDS: DIMETHICONE/COLLOIDAL OATMEAL 227 GM LOTION TP SCH ×2 (08:45→16:58)
[2023-04-22] MEDS: SERTRALINE HCL 50 MG TABLET PO SCH (08:45)
[2023-04-22 09:45] VITALS: TEMP 97.2
[2023-04-22 16:59] VITALS: BP 128/76; PULSE 76; RESP 18; TEMP 97.6
[2023-04-22 20:50] VITALS: BP 107/71; PULSE 74; RESP 18; TEMP 97.2; O2SAT 98
[2023-04-22] MEDS: IBUPROFEN 400 MG TABLET PO PRN (20:53)
[2023-04-22 21:53] VITALS: RESP 19
[2023-04-23 07:20] VITALS: BP 120/80; PULSE 79; RESP 18; TEMP 97.6; O2SAT 97
[2023-04-23] MEDS: TraMADol HCL 50 MG TABLET PO PRN ×2 (07:23→15:35)
[2023-04-23] MEDS: SERTRALINE HCL 50 MG TABLET PO SCH (09:58)
[2023-04-23] MEDS: QUEtiapine FUMARATE 25 MG TABLET PO SCH ×2 (09:58→20:27)
[2023-04-23] MEDS: IBUPROFEN 400 MG TABLET PO PRN ×2 (09:59→21:22)
[2023-04-23] MEDS: DIMETHICONE/COLLOIDAL OATMEAL 227 GM LOTION TP SCH ×2 (12:00→17:29)
[2023-04-23] MEDS: LORATADINE 10 MG TABLET PO SCH (14:15)
[2023-04-23 21:08] VITALS: BP 140/80; PULSE 76; RESP 18; TEMP 97.1; O2SAT 98
[2023-04-23 21:22] VITALS: RESP 18
[2023-04-23 22:22] VITALS: RESP 18
[2023-04-24 08:00] VITALS: BP 125/86; PULSE 85; RESP 20; TEMP 98.6; O2SAT 98
[2023-04-24] MEDS: QUEtiapine FUMARATE 25 MG TABLET PO SCH ×2 (08:03→20:24)
[2023-04-24] MEDS: LORazepam 2 MG TABLET PO PRN (08:03)
[2023-04-24] MEDS: LORATADINE 10 MG TABLET PO SCH (08:03)
[2023-04-24] MEDS: SERTRALINE HCL 50 MG TABLET PO SCH (08:03)
[2023-04-24] MEDS: TraMADol HCL 50 MG TABLET PO PRN ×2 (08:03→18:47)
[2023-04-24] MEDS: DIMETHICONE/COLLOIDAL OATMEAL 227 GM LOTION TP SCH ×2 (09:00→17:35)
[2023-04-24 10:48] VITALS: BP 101/71; PULSE 95; RESP 17; TEMP 97.4; O2SAT 99
[2023-04-24] MEDS: IBUPROFEN 400 MG TABLET PO PRN ×2 (14:24→14:27)
[2023-04-24 18:52] VITALS: BP 136/82; PULSE 88; RESP 18; TEMP 98
[2023-04-24 19:52] VITALS: RESP 18
[2023-04-24 21:52] VITALS: BP 111/73; PULSE 89; RESP 19; TEMP 97.9
[2023-04-25] MEDS: RisperiDONE 2 MG TABLET PO SCH ×2 (08:43→20:53)
[2023-04-25] MEDS: SERTRALINE HCL 50 MG TABLET PO SCH (08:43)
[2023-04-25] MEDS: LORATADINE 10 MG TABLET PO SCH (08:43)
[2023-04-25] MEDS: DIMETHICONE/COLLOIDAL OATMEAL 227 GM LOTION TP SCH ×2 (08:44→17:25)
[2023-04-25 09:55] VITALS: BP 120/72; PULSE 95; RESP 18; TEMP 97.4; O2SAT 99
[2023-04-25] MEDS: LORazepam 2 MG TABLET PO PRN (09:58)
[2023-04-25] MEDS: TraMADol HCL 50 MG TABLET PO PRN ×2 (09:59→20:54)
[2023-04-25 20:50] VITALS: BP 122/82; PULSE 89; RESP 20; TEMP 97.8; O2SAT 97
[2023-04-25 21:17] VITALS: BP 137/74; PULSE 87; RESP 18; TEMP 96.5; O2SAT 100
[2023-04-25 21:54] VITALS: RESP 18
[2023-04-26] MEDS: DIMETHICONE/COLLOIDAL OATMEAL 227 GM LOTION TP SCH ×2 (09:03→16:46)
[2023-04-26] MEDS: LORATADINE 10 MG TABLET PO SCH (09:03)
[2023-04-26] MEDS: SERTRALINE HCL 50 MG TABLET PO SCH (09:03)
[2023-04-26] MEDS: RisperiDONE 2 MG TABLET PO SCH ×2 (09:03→20:55)
[2023-04-26 09:06] VITALS: RESP 18; TEMP 97.7
[2023-04-26] MEDS: TraMADol HCL 50 MG TABLET PO PRN ×2 (09:06→23:01)
[2023-04-26 10:06] VITALS: RESP 19; TEMP 97.5
[2023-04-26] MEDS: LORazepam 2 MG TABLET PO PRN (20:07)
[2023-04-26 20:40] VITALS: BP 139/77; PULSE 88; RESP 18; TEMP 97.3; O2SAT 95
[2023-04-26] MEDS: ZOLPIDEM TARTRATE 10 MG TABLET PO PRN (20:55)
[2023-04-26 22:55] VITALS: BP 133/84; PULSE 84; RESP 18; TEMP 97.7; O2SAT 96
[2023-04-27] MEDS: RisperiDONE 2 MG TABLET PO SCH ×2 (08:19→20:53)
[2023-04-27] MEDS: LORATADINE 10 MG TABLET PO SCH (08:19)
[2023-04-27] MEDS: SERTRALINE HCL 50 MG TABLET PO SCH (08:19)
[2023-04-27] MEDS: DIMETHICONE/COLLOIDAL OATMEAL 227 GM LOTION TP SCH ×2 (08:20→16:13)
[2023-04-27 10:16] VITALS: BP 120/91; PULSE 89; RESP 18; TEMP 97.3; O2SAT 97
[2023-04-27] MEDS: TraMADol HCL 50 MG TABLET PO PRN (10:21)
[2023-04-27] MEDS: ONDANSETRON HCL 4 MG TABLET PO PRN (13:42)
[2023-04-27] MEDS: LORazepam 2 MG TABLET PO PRN (19:49)
[2023-04-27] MEDS: ZOLPIDEM TARTRATE 10 MG TABLET PO PRN (20:53)
[2023-04-28] MEDS: SERTRALINE HCL 50 MG TABLET PO SCH (08:20)
[2023-04-28] MEDS: LORATADINE 10 MG TABLET PO SCH (08:20)
[2023-04-28] MEDS: DIMETHICONE/COLLOIDAL OATMEAL 227 GM LOTION TP SCH ×2 (08:21→16:09)
[2023-04-28] MEDS: RisperiDONE 2 MG TABLET PO SCH ×2 (08:21→20:40)
[2023-04-28] MEDS: TraMADol HCL 50 MG TABLET PO PRN ×2 (08:23→18:01)
[2023-04-28 08:24] VITALS: BP 118/85; PULSE 102; RESP 18; TEMP 97.6
[2023-04-28] MEDS: ONDANSETRON HCL 4 MG TABLET PO PRN (10:47)
[2023-04-28] MEDS ORDERED: IOHEXOL 350 MG/ML 100 ML VIAL ONE (13:02)
[2023-04-28] MEDS ORDERED: SODIUM CHLORIDE 0.9% 100 ML ONE (13:02)
[2023-04-28 13:07] LABS: APPEARANCE,URINE CLEAR (CLEAR); BILIRUBIN,URINE NEGATIVE (NEGATIVE); COLOR,URINE LIGHT YELLOW (YELLOW); GLUCOSE, URINE (UA) NEGATIVE (NEGATIVE); KETONES,URINE NEGATIVE (NEGATIVE); LEUKOCYTE ESTERASE ,URINE NEGATIVE (NEGATIVE); NITRATE,URINE NEGATIVE (NEGATIVE); OCCULT BLOOD,URINE NEGATIVE (NEGATIVE); PROTEIN,URINE NEGATIVE (NEGATIVE); SPECIFIC GRAVITIY, URINE 1.013 (1.003-1.030); UROBILINOGEN,URINE <=1.0 mg/dL (<=1.0)
[2023-04-28 18:03] VITALS: BP 122/78; PULSE 100; RESP 18
[2023-04-28] MEDS: LORazepam 2 MG TABLET PO PRN (19:44)
[2023-04-28 20:52] VITALS: BP 127/98; PULSE 90; RESP 18; TEMP 98.6; O2SAT 96
[2023-04-28] MEDS: ZOLPIDEM TARTRATE 10 MG TABLET PO PRN (22:21)
[2023-04-29] MEDS: LORATADINE 10 MG TABLET PO SCH (08:39)
[2023-04-29] MEDS: SERTRALINE HCL 50 MG TABLET PO SCH (08:39)
[2023-04-29] MEDS: RisperiDONE 2 MG TABLET PO SCH ×2 (08:40→20:01)
[2023-04-29] MEDS: DIMETHICONE/COLLOIDAL OATMEAL 227 GM LOTION TP SCH ×2 (08:40→15:56)
[2023-04-29] MEDS: TraMADol HCL 50 MG TABLET PO PRN ×2 (08:57→18:53)
[2023-04-29 08:59] VITALS: BP 129/78; PULSE 89; RESP 18; TEMP 97.2; O2SAT 97
[2023-04-29] MEDS: LORazepam 2 MG TABLET PO PRN (20:01)
[2023-04-29] MEDS: ZOLPIDEM TARTRATE 10 MG TABLET PO PRN (21:55)
[2023-04-29 23:04] VITALS: RESP 18
[2023-04-30] MEDS: LORATADINE 10 MG TABLET PO SCH (09:00)
[2023-04-30] MEDS: DIMETHICONE/COLLOIDAL OATMEAL 227 GM LOTION TP SCH ×2 (09:00→16:23)
[2023-04-30] MEDS: SERTRALINE HCL 50 MG TABLET PO SCH (09:00)
[2023-04-30] MEDS: RisperiDONE 2 MG TABLET PO SCH ×2 (09:00→21:23)
[2023-04-30] MEDS: TraMADol HCL 50 MG TABLET PO PRN (09:01)
[2023-04-30 10:53] VITALS: RESP 18
[2023-04-30] MEDS: LORazepam 2 MG TABLET PO PRN (21:23)
[2023-04-30 21:38] VITALS: BP 132/82; PULSE 82; RESP 18; TEMP 98.1
[2023-05-01 08:50] VITALS: BP 132/87; PULSE 95; RESP 20; TEMP 97.1; O2SAT 98
[2023-05-01] MEDS: TraMADol HCL 50 MG TABLET PO PRN (08:52)
[2023-05-01] MEDS: RisperiDONE 2 MG TABLET PO SCH (08:52)
[2023-05-01] MEDS: LORATADINE 10 MG TABLET PO SCH (08:52)
[2023-05-01] MEDS: SERTRALINE HCL 50 MG TABLET PO SCH (08:52)
[2023-05-01] MEDS: LORazepam 2 MG TABLET PO PRN (08:52)
[2023-05-01] MEDS: DIMETHICONE/COLLOIDAL OATMEAL 227 GM LOTION TP SCH (09:00)
[2023-05-01] MEDS ORDERED: SERT-158 PO (12:34)
[2023-05-01] MEDS ORDERED: LORA10TA7 PO (12:34)
[2023-05-01] MEDS ORDERED: RISP2TAB86 PO (12:34)
[2023-05-02] MEDS ORDERED: LORA10TA60 PO (05:44)
[2023-05-02] MEDS ORDERED: RISP2TAB86 PO (05:44)
[2023-05-02] MEDS ORDERED: SERT-439 PO (05:44)
== END 2023-05-01 14:30 | disposition home or self-care (01) | DRG 885 ==
LOC: EMS 11:42 → 3EI 16:04 → UNDOADMIN 16:04 → 3EI 17:59 → 3EX 17:59
PROVIDERS: ADMIT Psychiatry & Neurology Psychiatry; ATTEND Psychiatry & Neurology Psychiatry
DX: F20.0 Paranoid schizophrenia (principal); R45.851 Suicidal ideations; F29 Unspecified psychosis not due to a substance or known physiological condition; J44.9 Chronic obstructive pulmonary disease, unspecified; E11.9 Type 2 diabetes mellitus without complications; F10.10 Alcohol abuse, uncomplicated; F19.10 Other psychoactive substance abuse, uncomplicated; Z20.822 Contact with and (suspected) exposure to COVID-19; G43.909 Migraine, unspecified, not intractable, without status migrainosus; F17.210 Nicotine dependence, cigarettes, uncomplicated; Z79.899 Other long term (current) drug therapy
CPT/HCPCS: 70450; 74177; 80053; 80061; 80307; 81001; 81003; 83036; 83690; 84443; 84702; 85025; 99285; G0378; G0480; J1200; J2405; J2765; J7030; J7050; Q0162; Q9967

== ENCOUNTER 2023-05-07 06:02 | Inpatient (IN) | payer MEDICARE, MEDICAID ==
[~2023-05-07] VITALS: Ht 149.9 cm; Wt 105.3 kg
[~2023-05-07 06:02] MED LIST changes: -BENZ1TAB84 PO; +LORA10TA60 PO; +LORA10TA7 PO
[2023-05-07 08:30] LABS: BASOPHILS % (AUTO) 0.6 % (0.0-2.0); EOSINOPHILS % (AUTO) 1.1 % (1.0-6.0); HEMATOCRIT 38.5 % (36-46); HEMOGLOBIN 12.2 g/dL (12.0-16.0); LYMPHOCYTES # (AUTO) 4.5 K/uL (1.0-4.8); MEAN CORPUSCULAR HEMOGLOBIN 25.4 pg (26.0-34.0); MEAN CORPUSCULAR HGB CONC 31.7 G/dL (31.0-37.0); MEAN CORPUSCULAR VOLUME 80 fL (80-100); MONOCYTES # (AUTO) 0.5 K/uL (0.1-1.0); MONOCYTES % (AUTO) 5.6 % (2.0-9.0); NEUTROPHILS # (AUTO) 3.8 K/uL (1.8-7.7); NEUTROPHILS % (AUTO) 42.7 % (40.0-70.0); PLATELET COUNT (AUTO) 375 K/uL (150-450); RED BLOOD CELL COUNT(AUTO) 4.83 MIL/uL (4.00-5.20); RED CELL DISTRIBUTION WIDTH 15.2 % (11.5-14.5); WHITE BLOOD COUNT (AUTO) 8.9 K/uL (4.5-11.0)
[2023-05-07 08:30] LABS: APPEARANCE,URINE CLEAR (CLEAR); BILIRUBIN,URINE NEGATIVE (NEGATIVE); COLOR,URINE LIGHT YELLOW (YELLOW); GLUCOSE, URINE (UA) NEGATIVE (NEGATIVE); KETONES,URINE NEGATIVE (NEGATIVE); LEUKOCYTE ESTERASE ,URINE NEGATIVE (NEGATIVE); NITRATE,URINE NEGATIVE (NEGATIVE); OCCULT BLOOD,URINE NEGATIVE (NEGATIVE); PROTEIN,URINE NEGATIVE (NEGATIVE); SPECIFIC GRAVITIY, URINE 1.017 (1.003-1.030); UROBILINOGEN,URINE <=1.0 mg/dL (<=1.0)
[2023-05-07 08:39] LABS: ALCOHOL, URINE DRUG SCREEN NEGATIVE (NEGATIVE); AMPHET/METH SCREEN,URINE NEGATIVE (NEGATIVE); BARBITURATE SCREEN, URINE NEGATIVE (NEGATIVE); BENZODIAZEPINES SCREEN,URINE NEGATIVE (NEGATIVE); CANNABINOID SCREEN,URINE NEGATIVE (NEGATIVE); COCAINE SCREEN,URINE NEGATIVE (NEGATIVE); METHADONE SCREEN, URINE NEGATIVE (NEGATIVE); OPIATE SCREEN,URINE NEGATIVE (NEGATIVE); PHENCYCLIDINE SCREEN,URINE NEGATIVE (NEGATIVE)
[2023-05-07 08:39] LABS: ANION GAP 9 mmol/L (8-16); CALCIUM, TOTAL 9.4 mg/dL (8.8-10.5); CARBON DIOXIDE 27 mmol/L (22-29); CHLORIDE 105 mmol/L (98-107); CREATININE 0.67 mg/dL (0.60-1.30); GLOMERULAR FILTR. RATE CALC > 60 mL/min (>60); GLUCOSE,RANDOM 116 mg/dL (70-110); POTASSIUM 3.4 mmol/L (3.5-5.1); SODIUM SERUM 141 mmol/L (136-145); UREA NITROGEN, BLOOD 6 mg/dL (7-18)
[2023-05-07 08:52] LABS: ALANINE AMINOTRANSFERASE 15 U/L (12-78); ALBUMIN 3.9 g/dL (3.4-5.0); ALKALINE PHOSPHATASE 84 U/L (46-116); ASPARTATE AMINOTRANSFERASE 15 U/L (15-37); BILIRUBIN,TOTAL 0.3 mg/dL (0.1-1.0); HCG,QUANTITATIVE < 1 mIU/mL (0-6); LIPASE 36 U/L (16-77); TOTAL PROTEIN, SERUM 7.9 g/dL (6.4-8.2)
[2023-05-07 09:50] LABS: COVID AG,FIA SOURCE NASAL SWAB
[2023-05-07 10:30] LABS: SARS-COV2 (COVID) ANTIGEN,FIA Negative (Negative)
[2023-05-07] MEDS ORDERED: HALOPERIDOL 5 MG TABLET PO PRN (11:00)
[2023-05-07] MEDS: LORazepam 2 MG TABLET PO PRN (12:36)
[2023-05-07 21:38] VITALS: BP 138/96; PULSE 95; RESP 18; TEMP 97.3; O2SAT 97
[2023-05-08 08:18] VITALS: BP 140/90; PULSE 100; RESP 19; TEMP 97; O2SAT 97
[2023-05-08] MEDS: NICOTINE 21 MG/24 HOUR PATCH TD SCH (08:39)
[2023-05-08 09:00] VITALS: RESP 19; O2SAT 98
[2023-05-08] MEDS: TraMADol HCL 50 MG TABLET PO PRN ×2 (09:00→18:27)
[2023-05-08] MEDS: SERTRALINE HCL 50 MG TABLET PO SCH (09:45)
[2023-05-08] MEDS ORDERED: PALIPERIDONE PALMITATE 234 MG/1.5 ML SYRINGE IM ONE (09:45)
[2023-05-08] MEDS: RisperiDONE 2 MG TABLET PO SCH ×2 (09:45→20:15)
[2023-05-08 10:00] VITALS: BP 135/89; RESP 18; O2SAT 99
[2023-05-08] MEDS ORDERED: POTASSIUM CHLORIDE 20 MEQ ER TABLET PO ONE (13:00)
[2023-05-08] MEDS ORDERED: NICOTINE 14 MG/24 HOUR PATCH TD PRN (13:00)
[2023-05-08] MEDS ORDERED: ACETAMINOPHEN 325 MG TABLET PO PRN (13:00)
[2023-05-08] MEDS ORDERED: CloNIDine HCL 0.1 MG TABLET PO PRN (13:00)
[2023-05-08] MEDS ORDERED: LOPERAMIDE HCL 2 MG CAPSULE PO PRN (13:00)
[2023-05-08] MEDS ORDERED: DOCUSATE SODIUM 100 MG CAPSULE PO PRN (13:00)
[2023-05-08] MEDS ORDERED: PETROLATUM,WHITE 28 GM JELLY TP PRN (13:00)
[2023-05-08] MEDS ORDERED: MAGNESIUM HYDROXIDE SUSPENSION 30 ML UDCUP PO PRN (13:00)
[2023-05-08] MEDS ORDERED: MAG HYDROX/AL HYDROX/SIMETH ES 30 ML SUSPENSION UDCUP PO PRN (13:00)
[2023-05-08] MEDS ORDERED: GuaiFENesin/D-METHORPHAN [SUGAR-FREE] 200-20MG/10 ML SYRUP UDCUP PO PRN (13:00)
[2023-05-08] MEDS ORDERED: ALBUTEROL SULFATE HFA 90 MCG/PUFF 8 GM INHALER IH PRN (13:00)
[2023-05-08] MEDS: MAG HYDROX/AL HYDROX/SIMETH ES 30 ML SUSPENSION UDCUP PO PRN (18:18)
[2023-05-08 18:27] VITALS: BP 139/96; RESP 19; O2SAT 98
[2023-05-08 19:27] VITALS: BP 133/89; RESP 17; O2SAT 99
[2023-05-08 20:09] VITALS: BP 138/82; PULSE 85; RESP 19; TEMP 97.7; O2SAT 98
[2023-05-09 04:00] VITALS: BP 133/78; PULSE 86; RESP 18; TEMP 97.7
[2023-05-09] MEDS: LORazepam 2 MG TABLET PO PRN (04:01)
[2023-05-09] MEDS: TraMADol HCL 50 MG TABLET PO PRN ×2 (04:02→14:25)
[2023-05-09] MEDS: NICOTINE 21 MG/24 HOUR PATCH TD SCH (08:29)
[2023-05-09 08:39] VITALS: BP 114/70; PULSE 93; RESP 18; TEMP 98.1; O2SAT 96
[2023-05-09] MEDS: SERTRALINE HCL 50 MG TABLET PO SCH (09:00)
[2023-05-09] MEDS: RisperiDONE 2 MG TABLET PO SCH ×3 (09:00→20:35)
[2023-05-09 14:26] VITALS: BP 116/77; PULSE 102; RESP 18; TEMP 97.6
[2023-05-09 15:25] VITALS: RESP 18
[2023-05-09 20:09] VITALS: BP 135/86; PULSE 67; RESP 18; TEMP 98; O2SAT 98
[2023-05-10 05:05] VITALS: BP 132/77; PULSE 87; RESP 17; TEMP 97.8
[2023-05-10] MEDS: TraMADol HCL 50 MG TABLET PO PRN ×2 (05:12→13:18)
[2023-05-10 08:06] VITALS: BP 107/75; PULSE 97; RESP 17; TEMP 98; O2SAT 97
[2023-05-10 08:34] LABS: CHOL/HDL RATIO 3.1 (3.9-5.7); THYROID STIMULATING HORMONE 1.12 uIU/mL (0.36-3.74)
[2023-05-10] MEDS: SERTRALINE HCL 50 MG TABLET PO SCH (09:00)
[2023-05-10] MEDS: RisperiDONE 2 MG TABLET PO SCH ×2 (09:00→20:05)
[2023-05-10] MEDS: ONDANSETRON HCL 4 MG TABLET PO PRN (09:40)
[2023-05-10] MEDS: NICOTINE 21 MG/24 HOUR PATCH TD SCH (09:41)
[2023-05-10 13:18] VITALS: BP 118/98
[2023-05-10 14:18] VITALS: BP 110/90; RESP 17; O2SAT 98
[2023-05-10] MEDS: LORazepam 2 MG TABLET PO PRN (20:05)
[2023-05-10 20:36] VITALS: BP 102/61; PULSE 83; RESP 18; TEMP 98.4; O2SAT 98
[2023-05-11 08:14] VITALS: BP 103/70; PULSE 91; RESP 18; TEMP 97.9; O2SAT 98
[2023-05-11] MEDS: RisperiDONE 2 MG TABLET PO SCH ×2 (09:05→20:28)
[2023-05-11] MEDS: SERTRALINE HCL 50 MG TABLET PO SCH (09:05)
[2023-05-11 09:08] VITALS: RESP 18; O2SAT 98
[2023-05-11] MEDS: TraMADol HCL 50 MG TABLET PO PRN ×2 (09:08→17:08)
[2023-05-11] MEDS ORDERED: NICOTINE 21 MG/24 HOUR PATCH TD PRN (09:15)
[2023-05-11] MEDS: MAG HYDROX/AL HYDROX/SIMETH ES 30 ML SUSPENSION UDCUP PO PRN (09:47)
[2023-05-11 10:08] VITALS: BP 112/71; RESP 17; O2SAT 99
[2023-05-11] MEDS: ONDANSETRON HCL 4 MG TABLET PO PRN (15:12)
[2023-05-11] MEDS: LORATADINE 10 MG TABLET PO PRN (17:09)
[2023-05-11 18:27] VITALS: BP 117/63; RESP 17; O2SAT 96
[2023-05-11 19:27] VITALS: RESP 18; O2SAT 99
[2023-05-11 20:10] VITALS: BP 118/83; PULSE 89; RESP 17; TEMP 97.9; O2SAT 97
[2023-05-11] MEDS: LORazepam 2 MG TABLET PO PRN (20:27)
[2023-05-12 08:08] VITALS: BP 108/80; PULSE 82; RESP 16; TEMP 97.5; O2SAT 97
[2023-05-12] MEDS: TraMADol HCL 50 MG TABLET PO PRN ×2 (08:08→17:19)
[2023-05-12] MEDS: RisperiDONE 2 MG TABLET PO SCH ×2 (08:08→20:15)
[2023-05-12] MEDS: SERTRALINE HCL 50 MG TABLET PO SCH (08:08)
[2023-05-12] MEDS ORDERED: PALIPERIDONE PALMITATE 156 MG/ML SYRINGE IM ONE (09:00)
[2023-05-12 17:19] VITALS: BP 128/78; PULSE 78; RESP 17
[2023-05-12 18:19] VITALS: RESP 16
[2023-05-12 20:05] VITALS: BP 136/87; PULSE 74; RESP 17; TEMP 97.3; O2SAT 100
[2023-05-13] VITALS (7 sets, daily range): BP systolic 113–137; BP diastolic 70–83; PULSE 78; RESP 18; TEMP 97.9–98; O2SAT 98
[2023-05-13] MEDS: TraMADol HCL 50 MG TABLET PO PRN ×2 (07:10→15:13)
[2023-05-13] MEDS: RisperiDONE 2 MG TABLET PO SCH ×2 (10:06→20:00)
[2023-05-13] MEDS: SERTRALINE HCL 50 MG TABLET PO SCH (10:07)
[2023-05-13] MEDS: IBUPROFEN 400 MG TABLET PO PRN (11:12)
[2023-05-13] MEDS: ONDANSETRON HCL 4 MG TABLET PO PRN (12:38)
[2023-05-13] MEDS: ZOLPIDEM TARTRATE 10 MG TABLET PO PRN (20:00)
[2023-05-14 07:55] VITALS: BP 103/71; PULSE 84; RESP 18; TEMP 93.8; O2SAT 98
[2023-05-14] MEDS: SERTRALINE HCL 50 MG TABLET PO SCH (08:02)
[2023-05-14] MEDS: RisperiDONE 2 MG TABLET PO SCH ×2 (08:02→20:42)
[2023-05-14 08:34] VITALS: BP 103/71; PULSE 84; RESP 18; TEMP 96; O2SAT 96
[2023-05-14] MEDS: TraMADol HCL 50 MG TABLET PO PRN ×2 (08:34→17:22)
[2023-05-14 14:23] VITALS: BP 103/71; PULSE 84; RESP 18; TEMP 93.8; O2SAT 96
[2023-05-14 18:22] VITALS: BP 123/85; PULSE 75; RESP 18; TEMP 96.3; O2SAT 99
[2023-05-14 20:05] VITALS: BP 115/80; PULSE 80; RESP 19; TEMP 97.3; O2SAT 98
[2023-05-14] MEDS: ZOLPIDEM TARTRATE 10 MG TABLET PO PRN (20:41)
[2023-05-15 08:05] VITALS: BP 122/77; PULSE 92; RESP 18; TEMP 97.8; O2SAT 95
[2023-05-15] MEDS: RisperiDONE 2 MG TABLET PO SCH ×2 (08:10→20:33)
[2023-05-15] MEDS: SERTRALINE HCL 50 MG TABLET PO SCH (08:10)
[2023-05-15 08:16] VITALS: RESP 18
[2023-05-15] MEDS: LORATADINE 10 MG TABLET PO PRN (08:16)
[2023-05-15] MEDS: TraMADol HCL 50 MG TABLET PO PRN ×2 (08:16→16:41)
[2023-05-15 09:16] VITALS: RESP 18
[2023-05-15 16:36] VITALS: BP 132/82; PULSE 102; RESP 18
[2023-05-15 17:41] VITALS: RESP 18
[2023-05-15 20:11] VITALS: BP 118/79; PULSE 121; RESP 20; TEMP 98; O2SAT 97
[2023-05-15] MEDS: ZOLPIDEM TARTRATE 10 MG TABLET PO PRN (21:45)
[2023-05-16 07:02] VITALS: BP 125/84; PULSE 89; RESP 19; TEMP 97.9
[2023-05-16] MEDS: TraMADol HCL 50 MG TABLET PO PRN ×2 (07:04→19:52)
[2023-05-16 08:04] VITALS: RESP 18
[2023-05-16] MEDS: RisperiDONE 2 MG TABLET PO SCH ×2 (08:13→20:31)
[2023-05-16] MEDS: SERTRALINE HCL 50 MG TABLET PO SCH (08:13)
[2023-05-16] MEDS: LORATADINE 10 MG TABLET PO PRN (08:34)
[2023-05-16 09:47] VITALS: BP 111/72; PULSE 75; RESP 18; TEMP 96.9; O2SAT 98
[2023-05-16 20:52] VITALS: BP 132/86; PULSE 99; RESP 18; TEMP 97.6; O2SAT 97
[2023-05-16 21:28] VITALS: RESP 18
[2023-05-17] MEDS: SERTRALINE HCL 50 MG TABLET PO SCH (07:53)
[2023-05-17] MEDS: RisperiDONE 2 MG TABLET PO SCH ×2 (07:53→20:26)
[2023-05-17 08:18] VITALS: BP 100/69; PULSE 75; RESP 19; TEMP 97.9; O2SAT 96
[2023-05-17] MEDS: TraMADol HCL 50 MG TABLET PO PRN (08:51)
[2023-05-17] MEDS: IBUPROFEN 400 MG TABLET PO PRN (10:25)
[2023-05-17 20:05] VITALS: BP 134/90; PULSE 91; RESP 18; TEMP 97.8; O2SAT 98
[2023-05-17] MEDS: LORazepam 2 MG TABLET PO PRN (20:26)
[2023-05-17] MEDS: MAG HYDROX/AL HYDROX/SIMETH ES 30 ML SUSPENSION UDCUP PO PRN (20:26)
[2023-05-18] MEDS: MAG HYDROX/AL HYDROX/SIMETH ES 30 ML SUSPENSION UDCUP PO PRN ×2 (08:49→17:00)
[2023-05-18] MEDS: SERTRALINE HCL 50 MG TABLET PO SCH (08:49)
[2023-05-18] MEDS: RisperiDONE 2 MG TABLET PO SCH ×2 (08:49→20:58)
[2023-05-18 08:56] VITALS: BP 130/90; PULSE 89; RESP 18; TEMP 97.7; O2SAT 98
[2023-05-18 20:58] VITALS: BP 132/79; PULSE 99; RESP 18; TEMP 97.5; O2SAT 99
[2023-05-18] MEDS: ZOLPIDEM TARTRATE 10 MG TABLET PO PRN (20:58)
[2023-05-19] MEDS: RisperiDONE 2 MG TABLET PO SCH ×2 (08:05→20:07)
[2023-05-19] MEDS: SERTRALINE HCL 50 MG TABLET PO SCH (08:05)
[2023-05-19 08:32] VITALS: BP 100/61; PULSE 80; RESP 18; TEMP 98; O2SAT 97
[2023-05-19] MEDS: MAG HYDROX/AL HYDROX/SIMETH ES 30 ML SUSPENSION UDCUP PO PRN (12:32)
[2023-05-19 15:23] VITALS: RESP 17
[2023-05-19] MEDS: IBUPROFEN 400 MG TABLET PO PRN (15:23)
[2023-05-19 16:23] VITALS: RESP 16
[2023-05-19] MEDS: ZOLPIDEM TARTRATE 10 MG TABLET PO PRN (20:14)
[2023-05-19 20:34] VITALS: BP 139/88; PULSE 100; RESP 18; TEMP 97.6; O2SAT 97
[2023-05-20 08:01] VITALS: BP 103/66; PULSE 71; RESP 15; TEMP 97.6; O2SAT 95
[2023-05-20] MEDS: SERTRALINE HCL 50 MG TABLET PO SCH (08:11)
[2023-05-20] MEDS: RisperiDONE 2 MG TABLET PO SCH ×2 (08:11→20:19)
[2023-05-20 08:13] LABS: APPEARANCE,URINE CLEAR (CLEAR); BILIRUBIN,URINE NEGATIVE (NEGATIVE); COLOR,URINE COLORLESS (YELLOW); GLUCOSE, URINE (UA) NEGATIVE (NEGATIVE); KETONES,URINE NEGATIVE (NEGATIVE); LEUKOCYTE ESTERASE ,URINE NEGATIVE (NEGATIVE); NITRATE,URINE NEGATIVE (NEGATIVE); OCCULT BLOOD,URINE NEGATIVE (NEGATIVE); PROTEIN,URINE NEGATIVE (NEGATIVE); SPECIFIC GRAVITIY, URINE 1.007 (1.003-1.030); UROBILINOGEN,URINE <=1.0 mg/dL (<=1.0)
[2023-05-20 08:25] LABS: BACTERIA,URINE None Seen /HPF (None Seen); RBC,URINE None Seen /HPF (0-2); SQUAMOUS EPITHELIAL CELL,UR None Seen /LPF (None Seen); WBC,URINE None Seen /HPF (0-5)
[2023-05-20 09:33] VITALS: RESP 17
[2023-05-20] MEDS: LORATADINE 10 MG TABLET PO PRN (09:33)
[2023-05-20] MEDS: TraMADol HCL 50 MG TABLET PO PRN (09:33)
[2023-05-20 10:33] VITALS: RESP 16
[2023-05-20 20:09] VITALS: BP 112/68; PULSE 76; RESP 17; TEMP 97.9
[2023-05-21 08:01] VITALS: BP 120/78; PULSE 90; RESP 17; TEMP 98.1; O2SAT 100
[2023-05-21] MEDS: LORATADINE 10 MG TABLET PO PRN (08:14)
[2023-05-21] MEDS: SERTRALINE HCL 50 MG TABLET PO SCH (08:14)
[2023-05-21] MEDS: RisperiDONE 2 MG TABLET PO SCH ×2 (08:14→20:10)
[2023-05-21 12:55] VITALS: RESP 17
[2023-05-21] MEDS: IBUPROFEN 400 MG TABLET PO PRN (12:55)
[2023-05-21 13:55] VITALS: RESP 16
[2023-05-21] MEDS: MAG HYDROX/AL HYDROX/SIMETH ES 30 ML SUSPENSION UDCUP PO PRN (18:23)
[2023-05-21 20:39] VITALS: BP 133/83; PULSE 87; RESP 18; TEMP 98; O2SAT 99
[2023-05-22] MEDS: LORATADINE 10 MG TABLET PO PRN (08:07)
[2023-05-22] MEDS: RisperiDONE 2 MG TABLET PO SCH ×2 (08:07→20:54)
[2023-05-22] MEDS: SERTRALINE HCL 50 MG TABLET PO SCH (08:08)
[2023-05-22 08:33] VITALS: BP 104/73; PULSE 93; RESP 16; TEMP 98.1; O2SAT 98
[2023-05-22 09:09] VITALS: RESP 18
[2023-05-22] MEDS: LORazepam 2 MG TABLET PO PRN (09:09)
[2023-05-22] MEDS: TraMADol HCL 50 MG TABLET PO PRN (09:09)
[2023-05-22 10:09] VITALS: RESP 18
[2023-05-22 20:53] VITALS: BP 121/86; PULSE 92; RESP 17; TEMP 97.4; O2SAT 99
[2023-05-23] MEDS: SERTRALINE HCL 50 MG TABLET PO SCH (08:10)
[2023-05-23] MEDS: RisperiDONE 2 MG TABLET PO SCH ×2 (08:10→20:31)
[2023-05-23 08:32] VITALS: BP 108/67; PULSE 70; RESP 17; TEMP 97.7; O2SAT 97
[2023-05-23] MEDS: LORATADINE 10 MG TABLET PO PRN (10:35)
[2023-05-23] MEDS: TraMADol HCL 50 MG TABLET PO PRN (10:36)
[2023-05-23] MEDS: LORazepam 2 MG TABLET PO PRN ×2 (10:41→19:00)
[2023-05-23] MEDS ORDERED: FLUTICASONE PROPIONATE 50 MCG/SPRAY 16 GM NASAL SPRAY NASAL PRN (16:00)
[2023-05-23 21:48] VITALS: BP 134/84; PULSE 96; RESP 18; TEMP 97.5; O2SAT 99
[2023-05-24] MEDS: SERTRALINE HCL 50 MG TABLET PO SCH (08:35)
[2023-05-24] MEDS: RisperiDONE 2 MG TABLET PO SCH ×3 (08:35→20:31)
[2023-05-24 08:45] VITALS: BP 132/88; PULSE 98; RESP 17; TEMP 97.6; O2SAT 98
[2023-05-24] MEDS: LORazepam 2 MG TABLET PO PRN (08:52)
[2023-05-24] MEDS: TraMADol HCL 50 MG TABLET PO PRN (08:52)
[2023-05-24 20:07] VITALS: BP 135/96; PULSE 97; RESP 18; TEMP 97.1
[2023-05-25 07:02] LABS: APPEARANCE,URINE CLEAR (CLEAR); BILIRUBIN,URINE NEGATIVE (NEGATIVE); COLOR,URINE COLORLESS (YELLOW); GLUCOSE, URINE (UA) NEGATIVE (NEGATIVE); KETONES,URINE NEGATIVE (NEGATIVE); LEUKOCYTE ESTERASE ,URINE NEGATIVE (NEGATIVE); NITRATE,URINE NEGATIVE (NEGATIVE); OCCULT BLOOD,URINE NEGATIVE (NEGATIVE); PH,URINE 7.5 (5.0-8.0); PROTEIN,URINE NEGATIVE (NEGATIVE); SPECIFIC GRAVITIY, URINE 1.006 (1.003-1.030); UROBILINOGEN,URINE <=1.0 mg/dL (<=1.0)
[2023-05-25] MEDS: SERTRALINE HCL 50 MG TABLET PO SCH (08:07)
[2023-05-25] MEDS: RisperiDONE 2 MG TABLET PO SCH (08:07)
[2023-05-25 08:35] VITALS: BP 119/64; PULSE 79; RESP 19; TEMP 97.8; O2SAT 99
[2023-05-25] MEDS ORDERED: PALI234D IM (09:13)
[2023-05-25] MEDS ORDERED: SERT-439 PO (09:13)
[2023-05-25] MEDS ORDERED: LORA10TA7 PO (09:13)
[2023-06-10] MEDS ORDERED: PALIPERIDONE PALMITATE 234 MG/1.5 ML SYRINGE IM SCH (09:00)
== END 2023-05-25 11:30 | disposition home or self-care (01) | DRG 885 ==
LOC: EMS 06:03 → B2X 16:50
PROVIDERS: ADMIT Psychiatry & Neurology Child & Adolescent Psychiatry; ATTEND Psychiatry & Neurology Psychiatry
DX: F25.1 Schizoaffective disorder, depressive type (principal); R45.851 Suicidal ideations; E11.9 Type 2 diabetes mellitus without complications; G43.909 Migraine, unspecified, not intractable, without status migrainosus; G89.29 Other chronic pain; J30.9 Allergic rhinitis, unspecified; J44.9 Chronic obstructive pulmonary disease, unspecified; K59.00 Constipation, unspecified; Z20.822 Contact with and (suspected) exposure to COVID-19; E87.6 Hypokalemia; F17.200 Nicotine dependence, unspecified, uncomplicated; F17.210 Nicotine dependence, cigarettes, uncomplicated; F99 Mental disorder, not otherwise specified; E78.5 Hyperlipidemia, unspecified; Z79.899 Other long term (current) drug therapy
CPT/HCPCS: 80053; 80061; 80307; 81001; 81003; 83036; 83690; 84443; 84702; 85025; 99285; G0480; Q0162

== ENCOUNTER 2023-08-12 17:22 | Emergency (ER) | payer MEDICARE, MEDICAID ==
[~2023-08-12] VITALS: Ht 154.9 cm; Wt 100.0 kg
[~2023-08-12 17:22] MED LIST changes: -LORA10TA60 PO; -LORA10TA7 PO; +LURA60TA PO; +LURA60TA4 PO; -RISP2TAB86 PO
[2023-08-12] MEDS ORDERED: RISP2TAB45 PO (18:55)
[2023-08-12] MEDS ORDERED: [UNRECOGNIZED DRUG - CODE] SQ (18:55)
[2023-08-12] MEDS ORDERED: SODIUM CHLORIDE 0.9% 1,000 ML IV ONE (19:00)
[2023-08-12 19:39] LABS: BASOPHILS % (AUTO) 0.4 % (0.0-2.0); EOSINOPHILS % (AUTO) 2.2 % (1.0-6.0); HEMATOCRIT 38.1 % (36-46); HEMOGLOBIN 12.5 g/dL (12.0-16.0); LYMPHOCYTES # (AUTO) 6.4 K/uL (1.0-4.8); MEAN CORPUSCULAR HEMOGLOBIN 26.2 pg (26.0-34.0); MEAN CORPUSCULAR HGB CONC 32.7 G/dL (31.0-37.0); MEAN CORPUSCULAR VOLUME 80 fL (80-100); MONOCYTES # (AUTO) 0.6 K/uL (0.1-1.0); MONOCYTES % (AUTO) 5.5 % (2.0-9.0); NEUTROPHILS # (AUTO) 3.7 K/uL (1.8-7.7); NEUTROPHILS % (AUTO) 33.9 % (40.0-70.0); PLATELET COUNT (AUTO) 348 K/uL (150-450); RED BLOOD CELL COUNT(AUTO) 4.76 MIL/uL (4.00-5.20); RED CELL DISTRIBUTION WIDTH 16.2 % (11.5-14.5); WHITE BLOOD COUNT (AUTO) 11.1 K/uL (4.5-11.0)
[2023-08-12 19:45] LABS: ANION GAP 10 mmol/L (8-16); CALCIUM, TOTAL 9.7 mg/dL (8.8-10.5); CARBON DIOXIDE 25 mmol/L (22-29); CHLORIDE 106 mmol/L (98-107); CREATININE 0.78 mg/dL (0.60-1.30); GLOMERULAR FILTR. RATE CALC > 60 mL/min (>60); GLUCOSE,RANDOM 101 mg/dL (70-110); POTASSIUM 3.5 mmol/L (3.5-5.1); SODIUM SERUM 141 mmol/L (136-145); UREA NITROGEN, BLOOD 7 mg/dL (7-18)
[2023-08-12 19:50] LABS: ALANINE AMINOTRANSFERASE 22 U/L (12-78); ALBUMIN 3.6 g/dL (3.4-5.0); ALKALINE PHOSPHATASE 86 U/L (46-116); ASPARTATE AMINOTRANSFERASE 19 U/L (15-37); LIPASE 33 U/L (16-77); TOTAL PROTEIN, SERUM 7.8 g/dL (6.4-8.2)
[2023-08-12 19:54] LABS: ALCOHOL, BLOOD (SERUM) < 3 mg/dL (0-10)
[2023-08-12 20:08] LABS: BILIRUBIN,TOTAL 0.1 mg/dL (0.1-1.0)
[2023-08-12] MEDS ORDERED: IBUPROFEN 600 MG TABLET PO ONE (20:45)
[2023-08-12] MEDS ORDERED: ACETAMINOPHEN 500 MG TABLET PO ONE (20:45)
[2023-08-12] MEDS ORDERED: ONDANSETRON HCL 4 MG TABLET PO ONE (20:45)
[2023-08-12 21:06] VITALS: BP 133/94; PULSE 96; RESP 18; TEMP 97.5
[2023-08-12 21:11] LABS: COVID AG,FIA SOURCE NASAL SWAB
[2023-08-12 21:22] LABS: RAPID GROUP A STREP NEGATIVE (NEGATIVE)
[2023-08-12 21:32] LABS: INFLUENZA TYPE A NEGATIVE FOR TYPE A (NEGATIVE); INFLUENZA TYPE B NEGATIVE FOR TYPE B (NEGATIVE); SARS-COV2 (COVID) ANTIGEN,FIA Negative (Negative)
== END 2023-08-12 22:10 | disposition home or self-care (01) ==
LOC: EMS 18:44
DX: B34.9 Viral infection, unspecified (principal); F10.20 Alcohol dependence, uncomplicated; F41.9 Anxiety disorder, unspecified; J44.9 Chronic obstructive pulmonary disease, unspecified; F32.A Depression, unspecified; E11.9 Type 2 diabetes mellitus without complications; G43.909 Migraine, unspecified, not intractable, without status migrainosus; F20.9 Schizophrenia, unspecified; G89.29 Other chronic pain; M54.50 Low back pain, unspecified; F17.210 Nicotine dependence, cigarettes, uncomplicated; Z98.890 Other specified postprocedural states; Z20.822 Contact with and (suspected) exposure to COVID-19
CPT/HCPCS: 99284; 87426; 80053; 83690; 84703; 85025; 87430; 87804; 36415; G0480; Q0162